=== PATIENT | male | born 1960 ===

== ENCOUNTER 2020-10-13 13:51 | Emergency (ER) | payer OTHER, SELFPAY ==
[2020-10-13 14:02] VITALS: BP 152/83; PULSE 94; RESP 18; O2SAT 97; BMI 44.3
--- NOTE | 2020-10-13 14:13 | XR_ITS ---
EXAMINATION: Right hand and right shoulder. CLINICAL INFORMATION: Injury. COMPARISON: None TECHNIQUE: 4 views right hand. 3 views right shoulder. FINDINGS: RIGHT HAND: There is mild loss of PIP and DIP joint space with periarticular spurring. No bony erosive changes. No acute fracture or dislocation seen. The soft tissues are normal. RIGHT SHOULDER: There is mild loss of right AC joint. The glenohumeral joint space is normal. There are subchondral cystic changes along the greater tuberosity. Mild glenohumeral spurring is seen. No visible acute fracture, dislocation or subluxation seen. The soft tissues are normal. XR/XR hand wrist RT IMPRESSION: Mild degenerative changes right shoulder joint. No visible acute fracture, dislocation or subluxation seen. Right hand: There is no visible acute fracture or dislocation. There are degenerative changes PIP and DIP joints.
--- NOTE | 2020-10-13 14:13 | XR_ITS ---
EXAMINATION: Right hand and right shoulder. CLINICAL INFORMATION: Injury. COMPARISON: None TECHNIQUE: 4 views right hand. 3 views right shoulder. FINDINGS: RIGHT HAND: There is mild loss of PIP and DIP joint space with periarticular spurring. No bony erosive changes. No acute fracture or dislocation seen. The soft tissues are normal. RIGHT SHOULDER: There is mild loss of right AC joint. The glenohumeral joint space is normal. There are subchondral cystic changes along the greater tuberosity. Mild glenohumeral spurring is seen. No visible acute fracture, dislocation or subluxation seen. The soft tissues are normal. XR/XR shoulder RT min 2V IMPRESSION: Mild degenerative changes right shoulder joint. No visible acute fracture, dislocation or subluxation seen. Right hand: There is no visible acute fracture or dislocation. There are degenerative changes PIP and DIP joints.
--- NOTE | 2020-10-13 14:16 | ED_ITS ---
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 scraping right knee and injuring right wrist right hand and right shoulder, no head injury no neck pain no back pain no loss of consciousness Related Data Allergies Allergy/AdvReac Type Severity Reaction Status Date / Time No Known Allergies Allergy Verified 08/21/20 09:44 Review of Systems Review of Systems: Positive for right wrist and hand pain as well as right shoulder pain, and a scrape of the right knee Negative there is no head injury no headache no loss of consciousness no dizziness no weakness no numbness no tingling, no neck pain no back pain no chest pain no pain with a deep breath no shortness of breath no laceration no trouble ambulating [facility] Past Medical History Source: nursing notes reviewed Surgical History (Updated 08/21/20 @ 09:45 by RAKEL Niño) No pertinent past surgical history Family History Family History (Updated 08/21/20 @ 09:46 by RAKEL Niño) Father Colon cancer Prostate cancer Mother Diabetes CVD (cardiovascular disease) Social History Social History Advance Directives: No Advance Directives Information Provided: Yes Physical Exam Vital Signs: Vital Signs: Last Vital Signs Pulse 94 10/13/20 14:02 Resp 18 10/13/20 14:02 BP 152/83 H 10/13/20 14:02 Pulse Ox 97 10/13/20 14:02 Body Mass Index 44.3 Patient is A&O x3 comfortable relaxed and cooperative, no acute distress Head is normocephalic atraumatic Neck is supple and nontender The chest no respiratory distress no chest wall tenderness, no tenderness to the clavicle Extremities the right knee has a superficial abrasion below the patella the knee has full range of motion without swelling or deformity and he is walking with a normal gait no limp The right shoulder has some discomfort with range of motion but does have a full range of motion and very mild deltoid tenderness Right elbow was normal with full range of motion Right wrist had good range of motion and very mild dorsal tenderness Right hand had mild dorsal tenderness and mild ecchymosis and swelling on the radial aspect of dorsal right hand but there is full range of motion in all joints, tendon function was intact and normal flexion and extension, neurovascular intact Neuro gait is normal balance is normal interaction is appropriate and understanding is normal, motor is 5 over 5 times for Course Course Course Narrative: X-ray of right hand and wrist did not show any acute injury or bony injury, there was some arthritis X-ray right shoulder same no acute injury some arthritic changes and patient was discharged home Discharge Plan Discharge Clinical Impression: Sprain and strain of right hand Abrasion of right knee Qualifiers: Encounter type: initial encounter Qualified Code(s): S80.211A - Abrasion, right knee, initial encounter Patient Disposition: Home, Self-Care Additional Instructions: No sign of any dangerous injury at this point, return any time any worse condition or concerns If not fully better follow with were connection before your return to work in 3 days X-rays did not show any acute injury or broken bone but they did show some arthritis in hand and in shoulder Her blood pressure was mildly elevated in the ER, follow with primary doctor for evaluation for possible hypertension, also get a blood pressure cuff at home and keep a record of the readings to see if they are high Referrals: [facility] [Provider Group] - 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
== END 2020-10-13 15:10 | disposition home or self-care (01) ==
PROVIDERS: Emergency Provider Emergency Medicine; PCP Physician Assistant
DX: S63.91XA Sprain of unspecified part of right wrist and hand, initial encounter (principal); S66.911A Strain of unspecified muscle, fascia and tendon at wrist and hand level, right hand, initial encounter; S80.211A Abrasion, right knee, initial encounter; W00.1XXA Fall from stairs and steps due to ice and snow, initial encounter; Y93.89 Activity, other specified; Y92.9 Unspecified place or not applicable; Y99.0 Civilian activity done for income or pay
CPT/HCPCS: 73030; 73110; 73130; 99281; 99283

== ENCOUNTER → 2020-10-16 14:07 | Outpatient (BNVA) | payer OTHER, SELFPAY | PROVIDERS: PCP Physician Assistant; Visit Provider Internal Medicine | DX: S43.401A Unspecified sprain of right shoulder joint, initial encounter (principal); S63.91XA Sprain of unspecified part of right wrist and hand, initial encounter; S80.01XA Contusion of right knee, initial encounter; W00.0XXA Fall on same level due to ice and snow, initial encounter | CPT/HCPCS: 99203 ==

== ENCOUNTER → 2020-10-20 15:07 | Outpatient (BNVA) | payer OTHER, SELFPAY | PROVIDERS: PCP Physician Assistant; Visit Provider Internal Medicine | DX: S46.911A Strain of unspecified muscle, fascia and tendon at shoulder and upper arm level, right arm, initial encounter (principal); S83.91XA Sprain of unspecified site of right knee, initial encounter; S63.601A Unspecified sprain of right thumb, initial encounter; W19.XXXA Unspecified fall, initial encounter | CPT/HCPCS: 99213 ==

== ENCOUNTER → 2020-10-30 09:15 | Outpatient (BNVA) | payer OTHER, SELFPAY | PROVIDERS: PCP Physician Assistant; Visit Provider Internal Medicine | DX: S46.911A Strain of unspecified muscle, fascia and tendon at shoulder and upper arm level, right arm, initial encounter (principal); S63.601A Unspecified sprain of right thumb, initial encounter; S80.01XA Contusion of right knee, initial encounter; W19.XXXA Unspecified fall, initial encounter | CPT/HCPCS: 99213 ==

== ENCOUNTER → 2020-11-06 08:03 | Outpatient (BNVA) | payer OTHER, SELFPAY | PROVIDERS: PCP Physician Assistant; Visit Provider Internal Medicine | DX: S43.401A Unspecified sprain of right shoulder joint, initial encounter (principal); S63.601A Unspecified sprain of right thumb, initial encounter; W19.XXXA Unspecified fall, initial encounter; R25.1 Tremor, unspecified | CPT/HCPCS: 99213 ==

== ENCOUNTER → 2020-11-10 09:39 | Outpatient (BNVA) | payer OTHER, SELFPAY | PROVIDERS: PCP Physician Assistant; Visit Provider Orthopaedic Surgery | DX: M18.11 Unilateral primary osteoarthritis of first carpometacarpal joint, right hand (principal); S60.221A Contusion of right hand, initial encounter | CPT/HCPCS: 99202 ==

== ENCOUNTER → 2020-11-14 08:10 | Outpatient (BNVA) | payer OTHER, SELFPAY | PROVIDERS: PCP Physician Assistant; Visit Provider Internal Medicine | DX: S69.91XD Unspecified injury of right wrist, hand and finger(s), subsequent encounter (principal); S49.91XD Unspecified injury of right shoulder and upper arm, subsequent encounter; W18.30XD Fall on same level, unspecified, subsequent encounter | CPT/HCPCS: 99213 ==

== ENCOUNTER 2020-11-19 09:00 | Outpatient (RCR) | payer OTHER, SELFPAY ==
--- NOTE | 2020-10-21 12:10 | MHC.PT.EP ---
[facility] [place] Office [place] Office [place] Office [address] Cuco Chang [address] [phone] F: [phone] F: [phone] F: [phone] F: [phone] Physical Therapy Plan of Care Date of Evaluation: 10/21/20 Date of Surgery: Diagnosis: FALL SPRAIN Rt THUMB AND Rt ROTATOR CUFF IMPINGEMENT Assessment: 60 YO MALE REF TO PT S/P SUSTAINING A FALL AT WORK 10/13/20, ONTO Rt SIDE WHILE ASCENDING STAIRS. HE IS REF TO OT FOR Rt HAND INJURY AND HAS EVAL SCHED FOR 10/22/20. Pt HAS DECR POSTURAL AWARENESS, LIMITED ROM Rt SH, DECR POST RC STRENGTH, AND (+) TENDERNESS W PALP TO Rt PARASCP AND ANT GH REGION. Pt HAS (+) Rt NEER IMPINGEMENT SIGN- CURRENTLY NO INSTABILITY OBSERVED- HE IS LIMITED W ADLs REQ > SH HEIGHT OR W EXTERNAL WT. Pt WOULD BENEFIT FROM PT TO ADDRESS PAIN, SOFT TISSUE IRRIT , AND DEV A HEP FOR STRENGTH , W RESPECT TO Rt HAND SXS. Frequency and Duration: The patient will be seen 2x WK x 3 WKS Short Term Goals: Pt REPORTS DECR Rt SH PAIN TO 2-3/10 IN 1.5 WKS Pt DEMON IMPROVED AROM Rt SH AND INDEP SELF CORRECT POSTURE IN 2 WKS Usp Goals: Pt RESUME REG ADLs W/O LIMITS FROM RT SH SXS IN 3 WKS Pt W IMPROVED SPADI SCORE BY 10 POINTS IN 3 WKS ( AT EVAL 65/130) Treatment Plan: Modalities to reduce pain, spasms and effusion. Manual therapy to restore motion and function. Therapeutic exercise to improve strength and flexibility. Neuromuscular re-education for posture and balance. Therapeutic activities to return to functional activities of daily living. Electronically signed by: Vesna Love, PT Please sign and return to therapist. Thank you for your referral.
--- NOTE | 2020-10-30 12:07 | MHC.PT.PR ---
[facility] [place] Office [place] Office [place] Office [address] Cuco Chang [address] [phone] F: [phone] F: [phone] F: [phone] F: [phone] Physical Therapy Progress Note Diagnosis: FALL SPRAIN Rt THUMB AND Rt ROTATOR CUFF IMPINGEMENT Date of Surgery: NA Date of Evaluation: 10/21/20 Treatments to Date: 4 Cancellations to Date: 0 No Shows to Date: 0 Subjective: Reports thumb is worse than his shoulder. When he uses his shoulder more, it gets progressively more sore. He saw Dr. Alberto this morning and potentially will be referred to surgeon for thumb. Pain Score and Location: 4 Rt ANT GH/ PARASCAP MM Objective Measures: R shoulder ROM: Flexion 160 ABD 140 ER 90 Apley ER C6, Apley IR SI joint Assessment: Reports feeling 60-70% better in regards to his shoulder pain. He still is light duty and reports pain/difficulty with reaching overhead to end-range, lifting, and reaching behind his back. He is making gradual gains in AROM and is compliant with HEP. Strength is the same at this time due to it only being 2 weeks since starting PT and strength changes would not be anticipated at this time. He would benefit from continued PT to progress ROM, decrease pain, and optimize functional mobility with an additional 2x/week for 3 additional weeks. PT Plan: Continue with PT Frequency and Duration: The patient will be seen 2x/week for an additional 3 weeks Treatment Plan: Therapeutic Exercise Dynamic Therapeutic Activities Neuromuscular Re-ed Manual Therapies Taping Home Exercise Program Patient Education Iontophoresis Hot or Cold Pack Reviewed/ Agreed with Student Documentation: N/A Therapist: Thank you once again for your referral.
--- NOTE | 2020-11-29 10:45 | MHC.PT.DC ---
[facility] [place] Office [place] Office [place] Office [address] Cuco Chang [address] [phone] F: [phone] F: [phone] F: [phone] F: [phone] Physical Therapy Discharge Report Diagnosis: FALL SPRAIN Rt THUMB AND Rt ROTATOR CUFF IMPINGEMENT Date of Surgery: NA Date of Evaluation: 10/21/20 Date of Discharge: 11/29/20 Treatments to Date: 10 Cancellations to Date: 0 No Shows to Date: 0 Discharge Status: Achieved Goals Improved Function Independent with HEP Discharge Summary: Pt MET PT GOALS- HE WAS LAST TREATED ON 11/19/20 AND PLANNED TO RTW ON 11/22/20 11/19/20. Pt INDEP W HEP AND WAS PLANNING TO CONTINUE AT THE GYM. HIS SHOULDER PAIN IS RELATIVELY RESOLVED- MINIMAL SOFT TISSUE TIGHTNESS WITH SHOULDER INTERNAL ROTATION. Electronically signed by: Vesna Love,PT Please sign and return to therapist. Thank you for your referral.
== END 2020-11-29 10:46 | disposition other institution (70) ==
LOC: HO.PT 09:00
PROVIDERS: PCP Physician Assistant; Visit Provider Internal Medicine
DX: S43.401A Unspecified sprain of right shoulder joint, initial encounter (principal)
CPT/HCPCS: 97110; 97140; 97162; 97530

== ENCOUNTER 2020-11-21 10:30 | Outpatient (RCR) | payer OTHER, SELFPAY | END 2020-12-04 15:38 | disposition other institution (70) | LOC: HO.OT 10:30 | PROVIDERS: PCP Physician Assistant; Visit Provider Internal Medicine | DX: S63.601D Unspecified sprain of right thumb, subsequent encounter (principal); M75.41 Impingement syndrome of right shoulder | CPT/HCPCS: 29125; 97014; 97033; 97035; 97110; 97165; 97760 ==

== ENCOUNTER → 2021-10-02 13:25 | Outpatient (BNVA) | payer OTHER, SELFPAY | PROVIDERS: PCP Physician Assistant; Referring Provider Physician Assistant; Visit Provider Surgery ==

== ENCOUNTER 2021-12-03 10:19 | Outpatient (REF) | payer OTHER, SELFPAY ==
[2021-12-03 11:11] LABS: Hematocrit 47.3 % (42.0-52.0); Hemoglobin 15.6 g/dl (14.0-18.0); Mean Corpuscular Hemoglobin 29.8 pg (27.0-33.0); Mean Corpuscular Volume 90.3 fL (80.0-98.0); Mean Platelet Volume 8.9 fL (9.4-12.4); Platelet Count 222 X10*3/uL (160-400); Red Blood Count 5.24 X10*6/uL (4.60-5.80); Red Cell Distribution Width 12.5 % (11.0-16.0)
[2021-12-03 12:25] LABS: Alanine Aminotransferase 30 U/L (0-40); Albumin Level 4.1 g/dL (3.5-5.0); Alkaline Phosphatase 72 U/L (39-117); Anion Gap 15 (12-20); Aspartate Amino Transferase 25 U/L (5-37); Bilirubin Total 0.8 mg/dL (0.0-1.0); Blood Urea Nitrogen 15 mg/dL (9-16); Calcium 9.3 mg/dL (8.4-10.2); Carbon Dioxide 25 mmol/L (22-29); Chloride 102 mmol/L (96-108); Cholesterol 219 mg/dL; Estimated Glomerular Filt Rate > 60; Glucose Fasting 174 mg/dL (60-99); HDL Cholesterol 40 mg/dL; LDL Cholesterol Calculated 152 mg/dl; Potassium 4.5 mmol/L (3.3-5.1); Sodium 137 mmol/L (135-145); Total Protein 7.3 g/dL (6.5-8.0); Triglycerides 136 mg/dL
[2021-12-03 12:33] LABS: TSH reflex Free T4 1.56 uIU/mL (0.32-4.0)
[2021-12-03 15:36] LABS: Prostate Specific Antigen Scr 0.65 ng/mL (<0.05-4.0)
== END 2021-12-03 10:20 | disposition home or self-care (01) ==
LOC: HO.LAB 10:19
PROVIDERS: PCP Physician Assistant; Visit Provider Physician Assistant
DX: Z13.1 Encounter for screening for diabetes mellitus (principal); Z13.220 Encounter for screening for lipoid disorders; Z13.29 Encounter for screening for other suspected endocrine disorder; Z12.5 Encounter for screening for malignant neoplasm of prostate; E66.01 Morbid (severe) obesity due to excess calories
CPT/HCPCS: 36415; 80053; 80061; 84153; 84443; 85027

== ENCOUNTER 2022-03-08 11:55 | Outpatient (REF) | payer OTHER, SELFPAY ==
[2022-03-08 13:05] LABS: Hematocrit 46.5 % (42.0-52.0); Hemoglobin 15.2 g/dl (14.0-18.0); Mean Corpuscular HGB Conc 32.7 g/dl (31.0-36.0); Mean Corpuscular Volume 91.9 fL (80.0-98.0); Mean Platelet Volume 8.9 fL (9.4-12.4); Platelet Count 215 X10*3/uL (160-400); Red Blood Count 5.06 X10*6/uL (4.60-5.80); Red Cell Distribution Width 12.9 % (11.0-16.0); White Blood Count 7.7 X10*3/uL (4.8-10.8)
[2022-03-08 14:53] LABS: TSH reflex Free T4 1.35 uIU/mL (0.32-4.0)
[2022-03-08 15:51] LABS: Alanine Aminotransferase 23 U/L (0-40); Albumin Level 4.2 g/dL (3.5-5.0); Alkaline Phosphatase 65 U/L (39-117); Anion Gap 15 (12-20); Aspartate Amino Transferase 24 U/L (5-37); Bilirubin Total 0.7 mg/dL (0.0-1.0); Blood Urea Nitrogen 17 mg/dL (9-16); Calcium 9.3 mg/dL (8.4-10.2); Carbon Dioxide 27 mmol/L (22-29); Chloride 102 mmol/L (96-108); Cholesterol 209 mg/dL; Estimated Glomerular Filt Rate > 60; Glucose Fasting 142 mg/dL (60-99); HDL Cholesterol 49 mg/dL; LDL Cholesterol Calculated 135 mg/dl; Potassium 5.2 mmol/L (3.3-5.1); Sodium 139 mmol/L (135-145); Total Protein 7.3 g/dL (6.5-8.0); Triglycerides 128 mg/dL
== END 2022-03-08 11:56 | disposition home or self-care (01) ==
LOC: HO.LAB 11:55
PROVIDERS: PCP Physician Assistant; Visit Provider Physician Assistant
DX: E11.65 Type 2 diabetes mellitus with hyperglycemia (principal); I10 Essential (primary) hypertension
CPT/HCPCS: 36415; 80053; 80061; 84443; 85027

== ENCOUNTER 2022-05-19 09:12 | Day surgery (SDC) | payer OTHER, SELFPAY ==
[2022-05-13 11:51] VITALS: BMI 53.0
--- NOTE | 2022-05-18 13:33 | P.CONAN_ITS ---
HPI - Anesthesia Eval Consult details Narrative: 62yo M for Colonoscopy PMFSH Active Problems Active Problems: All Active Problems (Updated 05/13/22 @ 11:50 by Jackie Hirsch RN) Arthritis of carpometacarpal (CMC) joint of right thumb (Acute) Contusion of right hand (Acute) Thrombosed hemorrhoids (Acute) Screening for diabetes mellitus (DM) (Acute) Screening for hypercholesterolemia (Acute) Screening for hypothyroidism (Acute) Annual physical exam (Acute) DMII (diabetes mellitus, type 2) (Acute) Colon cancer screening (Acute) Left shoulder pain (Acute) HTN (hypertension) (Acute) Morbid obesity (Acute) Perianal abscess (Acute) Past Medical History Medical History (Updated 05/13/22 @ 11:50 by Jackie Hirsch RN) Diabetes Elevated cholesterol HTN (hypertension) Morbid obesity Perianal abscess Family History Family History Father Colon cancer Prostate cancer Mother Diabetes CVD (cardiovascular disease) Heart attack, Onset Age: 56 Surgical History Surgical History (Updated 05/13/22 @ 11:47 by Jackie Hirsch RN) H/O colonoscopy History of esophagogastroduodenoscopy (EGD) Hx of excision of mass Hx of umbilical hernia repair Social History Social History Housing: House Alcohol intake: current Alcohol intake frequency: holidays/special occasions only Alcohol type: beer Patient Tobacco Use Status: Never used Tobacco e-Cigarette/Vaping Use: Never Used Use of substances other than those prescribed or required for medical reasons: No Are you DNR?: No Advance Directives: No Advance Directives Information Provided: Yes Current occupational status: employed 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 Allergies Allergy/AdvReac Type Severity Reaction Status Date / Time dulaglutide [From Trulicity] AdvReac Intermediate Abdominal Verified 03/08/22 11:30 Pain metformin AdvReac Intermediate Abdominal Verified 03/08/22 11:30 Pain Exam Exam Date and Time: May 18, 2022 1333 Height,Weight and Vital Signs: Height 5 ft 8.5 in Weight 160.572 kg Pertinent Lab Results Pertinent Lab Results: Laboratory Tests 03/08/22 03/08/22 12:08 12:08 WBC 7.7 Hgb 15.2 Hct 46.5 Plt Count 215 Sodium 139 Potassium 5.2 H Chloride 102 Carbon Dioxide 27 BUN 17 H Creatinine 1.08 Assessment and Plan Assessment Anesthesia Assessment: Chart Reviewed
[2022-05-19 09:36] VITALS: BP 142/78; PULSE 101; RESP 18; TEMP 35.8; O2SAT 96
[2022-05-19] MEDS: Lactated Ringers 1,000 ML 100 ML IVCONT (09:48)
[2022-05-19 09:50] LABS: Glucose, Whole Blood 203 mg/dL (60-115)
[2022-05-19 11:20] VITALS: BP 143/98; PULSE 108; RESP 16; TEMP 37.4; O2SAT 95
--- NOTE | 2022-05-19 11:23 | P.BOP_ITS ---
Brief Operative Note Date of Service: 05/19/22 Pre-op diagnosis: Screening Post-op diagnosis: other (Polyps) Procedure: Colonoscopy to the cecum with hot snare polypectomy x 2 Surgeon: Donald Stroud Anesthesia: MAC Was an Computer Help Desk Representative used for this Procedure?: No Estimated blood loss (mL): 2.0 Pathology: other (A. Distal ascending colon polyps) Condition: stable Disposition: PACU
[2022-05-19 11:35] VITALS: BP 137/76; PULSE 96; RESP 18; TEMP 36.9; O2SAT 96
--- NOTE | 2022-05-21 10:54 | OP_ITS ---
05/21/2022 SURGEON: Donald Stroud MD INDICATIONS: The patient presents for evaluation of colorectal cancer screening. Full consent has been obtained from him for this, including risks of bleeding and perforation. PREOPERATIVE DIAGNOSIS: Colorectal cancer screening. POSTOPERATIVE DIAGNOSIS: PROCEDURE PERFORMED: Colonoscopy to the cecum with hot snare polypectomy x 2 and placement of 2 resolution clips. ESTIMATED BLOOD LOSS: COMPLICATIONS: ANESTHESIA: Monitored anesthesia care. ASSISTANTS: SPECIMENS: POSTOPERATIVE DIAGNOSES: Colorectal cancer screening, colon polyps, diverticulosis, and internal hemorrhoids. DESCRIPTION OF PROCEDURE: The patient was placed in the left lateral decubitus position. The digital rectal exam revealed no abnormalities. The Z[employer]DIGS video pediatric colonoscope was entered into the rectum and advanced easily to the cecum. Once in the cecum, I did identify normal-appearing cecal pouch with appendiceal orifice and a normal-appearing ileocecal valve. The entire cecum was well visualized and appeared normal. The scope was slowly withdrawn assessing all mucosal surfaces carefully. Preparation was excellent. In the distal ascending colon were 2 polyps, each approximately 8 to 10 mm in size and grossly adenomatous. These were each removed by hot snare polypectomy and recovered by suction. One site had some persistent oozing, and therefore 2 resolution clips were applied with good deployment and good hemostasis. I did not visualize any other polyps, colitis, nor angiodysplasia. There was a mild amount of sigmoid diverticulosis. In the rectum, the scope was retroflexed visualizing internal hemorrhoids, but no other pathology. The rectal mucosa appeared normal. The scope was straightened and withdrawn from the patient. He tolerated the procedure well and was returned to the recovery area in stable condition. IMPRESSION: 1. Colon polyps. 2. Diverticulosis. 3. Internal hemorrhoids. PLAN: The results of the pathology will be checked. I would recommend a repeat colonoscopy in 5 years for further screening. He was advised not to use any aspirin and NSAIDs for 1 week. He will otherwise see me again on a p.r.n. basis. MD ARMANDO Carrera/GILBERT / [id number] MTDD
== END 2022-05-19 12:20 | disposition home or self-care (01) ==
PROVIDERS: PCP Physician Assistant; Visit Provider Internal Medicine
PROC: 0DJD8ZZ Inspection of Lower Intestinal Tract, Via Natural or Artificial Opening Endoscopic (ICD-10-PCS; CPT 45378; principal; 2022-05-19 10:30)
DX: Z12.11 Encounter for screening for malignant neoplasm of colon (principal); Z80.0 Family history of malignant neoplasm of digestive organs; D12.2 Benign neoplasm of ascending colon; K57.30 Diverticulosis of large intestine without perforation or abscess without bleeding; K64.8 Other hemorrhoids; I10 Essential (primary) hypertension; E78.00 Pure hypercholesterolemia, unspecified; E11.9 Type 2 diabetes mellitus without complications; Z79.82 Long term (current) use of aspirin; Z79.899 Other long term (current) drug therapy; Z88.8 Allergy status to other drugs, medicaments and biological substances
CPT/HCPCS: 45385; 82947; 88305; J2250

== ENCOUNTER 2022-10-06 14:57 | Outpatient (REF) | payer OTHER, SELFPAY ==
--- NOTE | ~2022-10-06 | XR_ITS ---
EXAMINATION: XR CHEST CLINICAL INFORMATION: Cough COMPARISON: 09/26/2018 TECHNIQUE: 2 views of the chest were obtained. FINDINGS: The lungs are well expanded. There is no focal consolidation, edema, or effusion. No pneumothorax. The cardiomediastinal silhouette is within normal limits. No acute osseous abnormality. XR/XR chest 2V IMPRESSION: Clear lungs.
== END 2022-10-06 14:58 | disposition home or self-care (01) ==
LOC: HO.HMGCX 14:57
PROVIDERS: PCP Physician Assistant; Visit Provider Internal Medicine
DX: R05.9 Cough, unspecified (principal)
CPT/HCPCS: 71046

== ENCOUNTER 2022-12-08 14:04 | Outpatient (REF) | payer OTHER, SELFPAY ==
[2022-12-08 15:21] LABS: Hematocrit 48.5 % (42.0-52.0); Hemoglobin 16.3 g/dl (14.0-18.0); Mean Corpuscular HGB Conc 33.6 g/dl (31.0-36.0); Mean Corpuscular Hemoglobin 30.8 pg (27.0-33.0); Mean Corpuscular Volume 91.7 fL (80.0-98.0); Mean Platelet Volume 9.3 fL (9.4-12.4); Platelet Count 241 X10*3/uL (160-400); Red Blood Count 5.29 X10*6/uL (4.60-5.80); White Blood Count 9.5 X10*3/uL (4.8-10.8)
[2022-12-08 16:00] LABS: Alanine Aminotransferase 36 U/L (0-40); Alkaline Phosphatase 76 U/L (39-117); Anion Gap 16 (12-20); Aspartate Amino Transferase 34 U/L (5-37); Bilirubin Total 0.8 mg/dL (0.0-1.0); Blood Urea Nitrogen 16 mg/dL (9-16); Calcium 9.4 mg/dL (8.4-10.2); Carbon Dioxide 25 mmol/L (22-29); Chloride 100 mmol/L (96-108); Cholesterol 229 mg/dL; Estimated Glomerular Filt Rate > 60; Glucose Fasting 216 mg/dL (60-99); HDL Cholesterol 41 mg/dL; LDL Cholesterol Calculated 155 mg/dl; Potassium 5.4 mmol/L (3.3-5.1); Sodium 136 mmol/L (135-145); Triglycerides 166 mg/dL
[2022-12-08 16:01] LABS: Creatinine Urine 228.51 mg/dL; Microalbum/Creatinine Ratio Ur 6.5 ug/mg cr
[2022-12-08 16:16] LABS: Prostate Specific Antigen Scr 0.74 ng/mL (<0.05-4.0); TSH reflex Free T4 1.73 uIU/mL (0.32-4.0)
== END 2022-12-08 14:05 | disposition home or self-care (01) ==
LOC: HO.LAB 14:04
PROVIDERS: PCP Physician Assistant; Visit Provider Physician Assistant
DX: Z12.5 Encounter for screening for malignant neoplasm of prostate (principal); E11.65 Type 2 diabetes mellitus with hyperglycemia; E66.01 Morbid (severe) obesity due to excess calories; I10 Essential (primary) hypertension
CPT/HCPCS: 36415; 80053; 80061; 82043; 84153; 84443; 85027

== ENCOUNTER 2023-03-10 10:37 | Outpatient (REF) | payer OTHER, SELFPAY ==
[2023-03-10 11:15] LABS: Hematocrit 46.7 % (42.0-52.0); Hemoglobin 15.3 g/dl (14.0-18.0); Mean Corpuscular HGB Conc 32.8 g/dl (31.0-36.0); Mean Corpuscular Hemoglobin 30.4 pg (27.0-33.0); Mean Corpuscular Volume 92.7 fL (80.0-98.0); Mean Platelet Volume 8.7 fL (9.4-12.4); Platelet Count 227 X10*3/uL (160-400); Red Blood Count 5.04 X10*6/uL (4.60-5.80); White Blood Count 8.1 X10*3/uL (4.8-10.8)
[2023-03-10 11:39] LABS: Alanine Aminotransferase 21 U/L (0-40); Albumin Level 3.9 g/dL (3.5-5.0); Alkaline Phosphatase 62 U/L (39-117); Anion Gap 14 (12-20); Aspartate Amino Transferase 21 U/L (5-37); Bilirubin Total 0.8 mg/dL (0.0-1.0); Blood Urea Nitrogen 14 mg/dL (9-16); Calcium 9.9 mg/dL (8.4-10.2); Carbon Dioxide 27 mmol/L (22-29); Chloride 102 mmol/L (96-108); Cholesterol 220 mg/dL; Estimated Glomerular Filt Rate > 60; Glucose Fasting 167 mg/dL (60-99); HDL Cholesterol 42 mg/dL; LDL Cholesterol Calculated 152 mg/dl; Potassium 4.8 mmol/L (3.3-5.1); Sodium 138 mmol/L (135-145); Total Protein 7.3 g/dL (6.5-8.0); Triglycerides 132 mg/dL
== END 2023-03-10 10:38 | disposition home or self-care (01) ==
LOC: HO.LAB 10:37
PROVIDERS: PCP Physician Assistant; Visit Provider Physician Assistant
DX: E11.65 Type 2 diabetes mellitus with hyperglycemia (principal)
CPT/HCPCS: 36415; 80053; 80061; 85027

== ENCOUNTER 2023-06-07 10:39 | Outpatient (AMB) | payer OTHER, SELFPAY ==
[2023-06-07 11:04] VITALS: BP 122/84; PULSE 95; RESP 16; O2SAT 98
--- NOTE | 2023-06-07 11:04 | A.OFFPC_ITS ---
Vital Signs 06/07/23 11:04 Weight 353 lb BP 122/84 Blood Pressure Location Lt brachial Position Sitting Respiration 16 Pulse 95 Pulse Source Pulse Oximeter Pulse Oximetry (%) 98 Oxygen Delivery Method Room Air Intake Visit Reasons: f/u DMII Intake Note: Pt is here for F/U DMII. 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 Accompanied by: Self / Same As Patient Allergies [facility] Adverse Reaction (Intermediate, Verified 06/07/23 11:25) Abdominal Pain metformin Adverse Reaction (Intermediate, Verified 06/07/23 11:25) Abdominal Pain Medication List - Last Reconciled 06/07/23 by Jose E Dougherty PA-C blood sugar diagnostic (FreeStyle Lite Strips) As directed blood-glucose meter (FreeStyle Lite Meter kit) As directed lancets (FreeStyle Lancets) As directed pioglitazone (Actos) 30 mg PO DAILY 90 days semaglutide (Ozempic) 0.25 mg (0.368 mL) subcut QWEEK 4 weeks simvastatin 10 mg PO DAILY 90 days Tobacco use date assessed: 03/10/23 Dental Screening Dental Screen Date: 06/07/23 Did you have a dental visit in the last 12 months?: Yes Did you have a dental problem in the last 6 months where you did not have access to dental care?: No Was dental information given to patient?: Patient has dentist HPI f/u DMII HPI Details Patient is a 63-year-old male here today for follow-up visit? Patient has a past medical history significant obesity type 2 diabetes, hypertension. .. Type 2 diabetes:??At last visit we discussed patient's uncontrolled type 2 diabetes. We started Ozempic an A1c as much improved. .. Hyperlipidemia: Continues on simvastatin 10 mg. Dom goal LDL to be below 100 .. HTN:? Patient currently managing his blood pressure without medication.? Otherwise denies any headaches, vision issues, chest discomfort or shortness of breath. ? Will supply him with a blood pressure cuff to do home blood pressure monitoring. Laboratory Tests 03/19/19 04/17/20 04/17/20 09:00 10:45 10:45 RBC Hgb Creatinine Fasting Glucose 153 H Hemoglobin A1c 8.6 Hgb A1c (Clinic) Cholesterol 131 D LDL Cholesterol, C alc PSA Screen TSH 3rd Generation 1.21 TSH 12/03/21 12/03/21 12/08/22 09:15 10:31 13:35 RBC 5.24 Hgb 15.6 Creatinine 1.03 Fasting Glucose 174 H Hemoglobin A1c Hgb A1c (Clinic) 8.1 H 9.8 H Cholesterol 219 LDL Cholesterol, C alc 152 PSA Screen 0.65 TSH 3rd Generation TSH 1.56 12/08/22 03/10/23 03/10/23 14:18 10:09 10:46 RBC 5.04 Hgb Creatinine Fasting Glucose 216 H Hemoglobin A1c Hgb A1c (Clinic) 8.1 H Cholesterol LDL Cholesterol, C alc PSA Screen TSH 3rd Generation TSH 06/07/23 10:50 RBC Hgb Creatinine Fasting Glucose Hemoglobin A1c Hgb A1c (Clinic) 6.4 H Cholesterol LDL Cholesterol, C alc PSA Screen TSH 3rd Generation TSH PFSH Medical History Elevated cholesterol Diabetes HTN (hypertension) Morbid obesity Thrombosed hemorrhoids Perianal abscess Arthritis of carpometacarpal (CMC) joint of right thumb Surgical History Hx of excision of mass History of esophagogastroduodenoscopy (EGD) H/O colonoscopy Hx of umbilical hernia repair Family History Father Colon cancer Prostate cancer Mother Diabetes CVD (cardiovascular disease) Heart attack, Onset Age: 56 Social History Housing: House Alcohol intake: current Alcohol intake frequency: holidays/special occasions only Alcohol type: beer Patient Tobacco Use Status: Never used Tobacco e-Cigarette/Vaping Use: Never Used Current occupational status: employed and retired 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 Donald Hanna, Chanell Medina, Gurjit Grove and colleagues, with an educational brian from [employer]. Review of Systems Const Denies headache(s) Eyes Denies loss of vision ENT Denies vertigo, Denies dizziness, Denies headache(s) and Denies sore throat Card Denies chest pain, Denies leg edema and Denies lightheadedness Resp Denies cough, Denies hemoptysis and Denies wheezing GI Denies abdominal pain, Denies melena, Denies constipation, Denies diarrhea and Denies vomiting Denies dysuria, Denies urinary frequency and Denies urinary urgency Musc Denies arthralgias, Denies joint swelling, Denies numbness and Denies tingling Neuro Denies Abnormal speech present, Denies behavioral changes, Denies vertigo, Denies dizziness, Denies headache(s), Denies loss of vision, Denies memory loss, Denies numbness and Denies tingling Psych Denies anxiety, Denies behavioral changes, Denies depression, Denies memory loss and Denies panic attacks Schuyler/Lymph Denies easy bleeding and Denies easy bruising Aller/Immun Denies wheezing Physical exam (Primary Care) Vital Signs: Last Vital Signs Pulse 95 06/07/23 11:04 Resp 16 06/07/23 11:04 BP 122/84 06/07/23 11:04 Pulse Ox 98 06/07/23 11:04 Oxygen Delivery Method Room Air 06/07/23 11:04 Tobacco/Smoking Status: Tobacco use Status Tobacco use date assessed 03/10/23 06/07/23 11:07 Patient Tobacco Use Status Never used Tobacco 06/07/23 11:07 e-Cigarette/Vaping Use Never Used 06/07/23 11:07 Thrive Assessment: Date of Thrive Assessment Date Thrive assessed 12/08/22 06/07/23 11:07 Const General: healthy appearing, no acute distress, alert and awake Nutritional Appearance: well nourished Orientation/consciousness: oriented to person, oriented to place and oriented to time HENMT Ears: TM's normal bilaterally General nose exam: Normal nasal mucous membranes and turbinates present Eyes Conjunctivae: conjunctivae normal Sclerae: sclerae normal Pupils: Equal, round and reactive pupils present Neck Neck: Yes no lymphadenopathy and Yes no JVD Thyroid: Thyroid normal Carotids: no bruits Resp Effort & Inspection: normal respiratory effort and not tachypneic Auscultation: no crackles, no rales, no rhonchi and no wheezes Cardio Rate: regular rate Rhythm: regular rhythm Heart sounds: no murmurs and normal S1 and S2 GI Palpation (GI): Soft to palpation, nontender, no hepatomegaly and no splenomegaly Auscultation: normal bowel sounds Skin General skin exam: no rashes or lesions noted and dry skin Neuro General: oriented to person, oriented to place and oriented to time Cranial nerves: Yes Equal, round and reactive pupils present Speech: No Abnormal speech present Gait exam (Neuro): Normal gait present Motor exam (neuro): no tremor noted Extrem Right upper extremity: full ROM Left upper extremity: full ROM Right lower extremity: full ROM; no edema Left lower extremity: full ROM; no edema Psych Mental Status: mental status grossly normal Speech and movement: Normal speech and movement present Affect: normal affect Attitude: cooperative Thought process: Normal thought process present Results AMB Hemoglobin A1c AMB Hemoglobin A1c 6.4 % Last Edit by SRINIVAS Amor on 06/07/23 11:18 Results Reviewed Results Reviewed: Laboratory Last Values Hgb A1c (Clinic) 6.4 % (4.0-6.0) H 06/07/23 10:50 Assessment and Plan Assessment & Plan (1) DMII (diabetes mellitus, type 2): Code(s): E11.9 - Type 2 diabetes mellitus without complications Qualifiers: Diabetes mellitus complication status: with hyperglycemia Diabetes mellitus intermediate card tender insulin use: without intermediate card tender use Qualified Code(s): E11.65 - Type 2 diabetes mellitus with hyperglycemia Plan: Patient's type 2 diabetes now well controlled. Has had excellent response with Ozempic 0.25 mg weekly. Advised to increase dose to 0.5 mg for better results and additional benefit of weight loss and patient is considering. Goal A1c is to remain below 7.0 (2) HTN (hypertension): Code(s): I10 - Essential (primary) hypertension Qualifiers: Hypertension type: primary hypertension Qualified Code(s): I10 - Essential (primary) hypertension Plan: Patient's blood pressure acceptable today in office. Advised to monitor blood pressure at home with goal blood pressure to be below 140/90 (3) Morbid obesity: Code(s): E66.01 - Morbid (severe) obesity due to excess calories Plan: Has noted minimal amount of weight loss since last office visit.. Patient does understand his BMI is over 50 and unfortunately gained weight since last office visit. Advised to be more physically active an adapt to better eating habits to reduce his weight Orders: Orders AMB Hemoglobin A1c Today E11.9 - Type 2 diabetes mellitus without complications Comprehensive [place]. Panel Fast Today E11.65 - Type 2 diabetes mellitus with hyperglycemia Lipid Panel Today E78.5 - Hyperlipidemia, unspecified Complete Blood Count no Diff Today E11.65 - Type 2 diabetes mellitus with hyperglycemia Medications: Refilled semaglutide (Ozempic) for 4 weeks 0.25 mg (0.368 mL) subcut QWEEK 4 weeks 3 mL 3RF E11.65 - Type 2 diabetes mellitus with hyperglycemia Coding Level of Care Code Est Pt Level 4 (81979) Diagnoses Type 2 diabetes mellitus with hyperglycemia, without long-term current use of insulin E11.65 Diabetes mellitus complication status: with hyperglycemia Diabetes mellitus correction insulin use: without correction use Primary hypertension I10 Hypertension type: primary hypertension Morbid obesity E66.01
== END 2023-06-07 11:36 | disposition home or self-care (01) ==
PROVIDERS: PCP Physician Assistant; Visit Provider Physician Assistant
DX: E11.65 Type 2 diabetes mellitus with hyperglycemia (principal); I10 Essential (primary) hypertension; E66.01 Morbid (severe) obesity due to excess calories; E11.9 Type 2 diabetes mellitus without complications
CPT/HCPCS: 83036; 99214

== ENCOUNTER 2023-06-07 11:48 | Outpatient (REF) | payer OTHER, SELFPAY ==
[2023-06-07 12:59] LABS: Hematocrit 49.3 % (42.0-52.0); Hemoglobin 15.9 g/dl (14.0-18.0); Mean Corpuscular HGB Conc 32.3 g/dl (31.0-36.0); Mean Corpuscular Hemoglobin 30.1 pg (27.0-33.0); Mean Corpuscular Volume 93.2 fL (80.0-98.0); Platelet Count 234 X10*3/uL (160-400); Red Blood Count 5.29 X10*6/uL (4.60-5.80); Red Cell Distribution Width 13.2 % (11.0-16.0); White Blood Count 9.6 X10*3/uL (4.8-10.8)
[2023-06-07 13:56] LABS: Alanine Aminotransferase 15 U/L (0-40); Albumin Level 4.1 g/dL (3.5-5.0); Alkaline Phosphatase 57 U/L (39-117); Anion Gap 14 (12-20); Aspartate Amino Transferase 18 U/L (5-37); Bilirubin Total 0.6 mg/dL (0.0-1.0); Blood Urea Nitrogen 15 mg/dL (9-16); Carbon Dioxide 27 mmol/L (22-29); Chloride 103 mmol/L (96-108); Cholesterol 180 mg/dL (<200); Estimated Glomerular Filt Rate > 60; Glucose Fasting 139 mg/dL (60-99); Glucose Random 139 mg/dL (60-115); HDL Cholesterol 45 mg/dL (>40); LDL Cholesterol Calculated 111 mg/dL (<100); Sodium 139 mmol/L (135-145); Total Protein 7.7 g/dL (6.5-8.0); Triglycerides 121 mg/dL (<150)
== END 2023-06-07 11:49 | disposition home or self-care (01) ==
LOC: HO.LAB 11:48
PROVIDERS: PCP Physician Assistant; Visit Provider Physician Assistant
DX: E11.65 Type 2 diabetes mellitus with hyperglycemia (principal); E87.5 Hyperkalemia; E78.5 Hyperlipidemia, unspecified
CPT/HCPCS: 36415; 80048; 80053; 80061; 85027

== ENCOUNTER 2023-08-31 07:39 | Outpatient (AMB) | payer OTHER, SELFPAY ==
[2023-08-31 07:44] VITALS: BP 130/88; PULSE 93; O2SAT 98; BMI 51.5
--- NOTE | 2023-08-31 07:44 | MHC.PC.OV ---
Vital Signs 08/31/23 07:44 Height 5 ft 8.5 in Weight 344 lb BMI 51.5 BP 130/88 Blood Pressure Location Lt brachial Position Sitting Pulse 93 Pulse Source Pulse Oximeter Pulse Oximetry (%) 98 Oxygen Delivery Method Room Air Intake Visit Reasons: f/u DMII Allergies dulaglutide [From [facility]] Adverse Reaction (Intermediate, Verified 08/31/23 08:03) Abdominal Pain metformin Adverse Reaction (Intermediate, Verified 08/31/23 08:03) Abdominal Pain Medication List - Last Reconciled 08/31/23 by Jose E Dougherty PA-C blood sugar diagnostic (FreeStyle Lite Strips) As directed blood-glucose meter (FreeStyle Lite Meter kit) As directed lancets (FreeStyle Lancets) As directed pioglitazone (Actos) 30 mg PO DAILY 90 days pioglitazone (Actos) 30 mg PO DAILY 90 days semaglutide (Ozempic) 0.25 mg (0.368 mL) subcut QWEEK 4 weeks simvastatin 10 mg PO DAILY 90 days Tobacco use date assessed: 03/10/23 Dental Screening Dental Screen Date: 08/31/23 Did you have a dental visit in the last 12 months?: Yes Did you have a dental problem in the last 6 months where you did not have access to dental care?: No Was dental information given to patient?: Patient has dentist HPI f/u DMII HPI Details Patient is a 63-year-old male here today for follow-up visit? Patient has a past medical history significant obesity type 2 diabetes, hypertension. .. Type 2 diabetes:??At last visit we discussed patient's uncontrolled type 2 diabetes. He continues on Ozempic 0.5 mg. Unfortunately his A1c has elevated to 8.2. Of note he has lost a few lb since last office visit. .. Hyperlipidemia: Continues on simvastatin 10 mg. Dom goal LDL to be below 100 .. HTN:? Patient currently managing his blood pressure without medication.? Otherwise denies any headaches, vision issues, chest discomfort or shortness of breath. ? Will supply him with a blood pressure cuff to do home blood pressure monitoring. Laboratory Tests 03/19/19 04/17/20 04/17/20 09:00 10:45 10:45 RBC Hgb Creatinine Fasting Glucose 153 H Hemoglobin A1c 8.6 Hgb A1c (Clinic) Cholesterol 131 D LDL Cholesterol, C alc PSA Screen TSH 3rd Generation 1.21 TSH 12/03/21 12/03/21 12/08/22 09:15 10:31 13:35 RBC 5.24 Hgb 15.6 Creatinine 1.03 Fasting Glucose 174 H Hemoglobin A1c Hgb A1c (Clinic) 8.1 H 9.8 H Cholesterol 219 LDL Cholesterol, C alc 152 PSA Screen 0.65 TSH 3rd Generation TSH 1.56 12/08/22 03/10/23 03/10/23 14:18 10:09 10:46 RBC 5.04 Hgb Creatinine Fasting Glucose 216 H Hemoglobin A1c Hgb A1c (Clinic) 8.1 H Cholesterol LDL Cholesterol, C alc PSA Screen TSH 3rd Generation TSH 06/07/23 10:50 RBC Hgb Creatinine Fasting Glucose Hemoglobin A1c Hgb A1c (Clinic) 6.4 H Cholesterol LDL Cholesterol, C alc PSA Screen TSH 3rd Generation TSH PFSH Medical History Elevated cholesterol Diabetes HTN (hypertension) Morbid obesity Thrombosed hemorrhoids Perianal abscess Arthritis of carpometacarpal (CMC) joint of right thumb Surgical History Hx of excision of mass History of esophagogastroduodenoscopy (EGD) H/O colonoscopy Hx of umbilical hernia repair Family History Father Colon cancer Prostate cancer Mother Diabetes CVD (cardiovascular disease) Heart attack, Onset Age: 56 Social History Housing: House Alcohol intake: current Alcohol intake frequency: holidays/special occasions only Alcohol type: beer Patient Tobacco Use Status: Never used Tobacco e-Cigarette/Vaping Use: Never Used Current occupational status: employed and retired 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 1. Little interest or pleasure in doing things: not at all 2. Feeling down, depressed, or hopeless: not at all 3. Trouble falling or staying asleep, or sleeping too much: not at all 4. Feeling tired or having little energy: not at all 5. Poor appetite or overeating: not at all 6. Feeling bad about yourself - or that you are a failure or have let yourself or your family down: not at all 7. Trouble concentrating on things, such as reading the newspaper or watching television: not at all 8. Moving or speaking so slowly that other people could have noticed. Or the opposite - being so fidgety or restless that you have been moving around a lot more than usual: not at all 9. Thoughts that you would be better off or of hurting yourself in some way: not at all Total score: 0 Depression Screening Interpretation: Negative Depression Screening Done: Yes 50625 - PHQ-9 Billing: Yes Source: Developed by Drs. Donald Hanna, Chanell Medina, Gurjit Grove and colleagues, with an educational brian from [employer]. Thrive Questionnaire Date Thrive assessed: 12/08/22 AUDIT C Alcohol Use Questionnaire (AUDIT-C) 1. How often do you have a drink containing alcohol?: Monthly or less 2. How many drinks containing alcohol do you have on a typical day when you are drinking?: 1 or 2 3. How often do you have six or more drinks on one occasion?: Never Total Score: 1 FARIDA-7 AMB Questionnaire FARIDA-7 Date FARIDA - 7 assessed: 12/08/22 Source: Developed by Drs. Donadl Hanna, Chanell Medina, Gurjit Grove and colleagues, with an educational brian from [employer]. Review of Systems Const Denies headache(s) Eyes Denies loss of vision ENT Denies vertigo, Denies dizziness, Denies headache(s) and Denies sore throat Card Denies chest pain, Denies leg edema and Denies lightheadedness Resp Denies cough, Denies hemoptysis and Denies wheezing GI Denies abdominal pain, Denies melena, Denies constipation, Denies diarrhea and Denies vomiting Denies dysuria, Denies urinary frequency and Denies urinary urgency Musc Denies arthralgias, Denies joint swelling, Denies numbness and Denies tingling Neuro Denies Abnormal speech present, Denies behavioral changes, Denies vertigo, Denies dizziness, Denies headache(s), Denies loss of vision, Denies memory loss, Denies numbness and Denies tingling Psych Denies anxiety, Denies behavioral changes, Denies depression, Denies memory loss and Denies panic attacks Schuyler/Lymph Denies easy bleeding and Denies easy bruising Aller/Immun Denies wheezing Physical exam (Primary Care) Vital Signs: Last Vital Signs Pulse 93 08/31/23 07:44 BP 130/88 08/31/23 07:44 Pulse Ox 98 08/31/23 07:44 Oxygen Delivery Method Room Air 08/31/23 07:44 BMI result Body Mass Index 51.5 BMI Assessment/Plan discussion: High Tobacco/Smoking Status: Tobacco use Status Tobacco use date assessed 03/10/23 08/31/23 07:46 Patient Tobacco Use Status Never used Tobacco 08/31/23 07:46 e-Cigarette/Vaping Use Never Used 08/31/23 07:46 PHQ-9: PHQ-9 Score PHQ-9: Total score 0 08/31/23 08:04 Depression Screening Interpretation: Negative Thrive Assessment: Date of Thrive Assessment Date Thrive assessed 12/08/22 08/31/23 07:46 Const Other: Morbidly obese General: healthy appearing, no acute distress, alert and awake Nutritional Appearance: well nourished Orientation/consciousness: oriented to person, oriented to place and oriented to time HENMT Ears: TM's normal bilaterally General nose exam: Normal nasal mucous membranes and turbinates present Eyes Conjunctivae: conjunctivae normal Sclerae: sclerae normal Pupils: Equal, round and reactive pupils present Neck Neck: Yes no lymphadenopathy and Yes no JVD Thyroid: Thyroid normal Carotids: no bruits Resp Effort & Inspection: normal respiratory effort and not tachypneic Auscultation: no crackles, no rales, no rhonchi and no wheezes Cardio Rate: regular rate Rhythm: regular rhythm Heart sounds: no murmurs and normal S1 and S2 GI Palpation (GI): Soft to palpation, nontender, no hepatomegaly and no splenomegaly Auscultation: normal bowel sounds Skin General skin exam: no rashes or lesions noted and dry skin Neuro General: oriented to person, oriented to place and oriented to time Cranial nerves: Yes Equal, round and reactive pupils present Speech: No Abnormal speech present Gait exam (Neuro): Normal gait present Motor exam (neuro): no tremor noted Extrem Right upper extremity: full ROM Left upper extremity: full ROM Right lower extremity: full ROM; no edema Left lower extremity: full ROM; no edema Psych Mental Status: mental status grossly normal Speech and movement: Normal speech and movement present Affect: normal affect Attitude: cooperative Thought process: Normal thought process present Office Procedures Flu Questionnaire Does the patient have a severe egg allergy?: No Does the patient have severe life threatening allergies?: No Does the patient have a fever or illness today?: No Has the patient ever had Guillain-[place] Syndrome?: No Has the patient ever had any past reaction to a flu shot?: No Results AMB Hemoglobin A1c AMB Hemoglobin A1c 8.5 % Last Edit by Lisa Monet CMA on 08/31/23 08:01 Immunizations flu vacc [id number] 6mos up(PF) 60 mcg(15 mcgx4)/0.5 mL IM syringe Performing Provider: Jose E Dougherty PA-C Performing Location: [facility] Administered by: Lisa Monet CMA on 08/31/23 08:23 Dose Route Admin Location Dispensed Lot Number Expiration Date N[employer] Wel[employer] F[employer] Apprentice 0.5 mL IM Left Deltoid 0.5 mL [id number] 03/11/24 [id number] VIS Given Date VIS Provided VIS Publication Date 08/31/23 Single Vaccine 21 Eligibility Eligibility Date Funding Source Not [facility] Eligible 08/31/23 Private Results Reviewed Results Reviewed: Laboratory Last Values Hgb A1c (Clinic) 8.5 % (4.0-6.0) H 08/31/23 07:46 Assessment and Plan Assessment & Plan (1) DMII (diabetes mellitus, type 2): Code(s): E11.9 - Type 2 diabetes mellitus without complications Qualifiers: Diabetes mellitus long term acute care registered nurse insulin use: without long term acute care registered nurse use Diabetes mellitus complication status: with hyperglycemia Qualified Code(s): E11.65 - Type 2 diabetes mellitus with hyperglycemia Plan: Patient's type 2 diabetes now well controlled. Had previous he had an excellent response to his Ozempic. Unfortunately today's A1c elevated at 8.5 Has been somewhat reluctant to increase his dose to 0.5 mg. He does understand that this is the standard dose. He is not willing to increase his dose to 1 mg of Ozempic weekly. (2) HTN (hypertension): Code(s): I10 - Essential (primary) hypertension Qualifiers: Hypertension type: primary hypertension Qualified Code(s): I10 - Essential (primary) hypertension Plan: Patient's blood pressure acceptable today in office. Advised to monitor blood pressure at home with goal blood pressure to be below 140/90 (3) Morbid obesity: Code(s): E66.01 - Morbid (severe) obesity due to excess calories Plan: Has noted weight loss since last office visit. Advised to be more physically active an adapt to better eating habits to reduce his weight Orders: Orders Influenza [id number] Immunization Today Z23 - Encounter for immunization AMB Hemoglobin A1c Today Z13.9 - Encounter for screening, unspecified Comprehensive [place]. Panel Fast Today E11.65 - Type 2 diabetes mellitus with hyperglycemia Lipid Panel Today E78.5 - Hyperlipidemia, unspecified Medications: New semaglutide (Ozempic) 1 mg (0.75 mL) subcut QWEEK 4 weeks 3 mL 3RF E11.65 - Type 2 diabetes mellitus with hyperglycemia Refilled pioglitazone (Actos) 30 mg PO DAILY 90 days 90 tabs 1RF E11.65 - Type 2 diabetes mellitus with hyperglycemia simvastatin 10 mg PO DAILY 90 days 90 tabs 1RF E78.5 - Hyperlipidemia, unspecified Discontinued semaglutide (Ozempic) for 4 weeks Discontinued Reason: Doctor's Order 0.25 mg (0.368 mL) subcut QWEEK 4 weeks 3 mL 3RF E11.65 - Type 2 diabetes mellitus with hyperglycemia Coding Level of Care Code Est Pt Level 4 (23679) Diagnoses Type 2 diabetes mellitus with hyperglycemia, without long-term current use of insulin E11.65 Diabetes mellitus long term acute care registered nurse insulin use: without long term acute care registered nurse use Diabetes mellitus complication status: with hyperglycemia Primary hypertension I10 Hypertension type: primary hypertension Morbid obesity E66.01
== END 2023-08-31 08:27 | disposition home or self-care (01) ==
PROVIDERS: PCP Physician Assistant; Visit Provider Physician Assistant
DX: Z23 Encounter for immunization (principal); E11.65 Type 2 diabetes mellitus with hyperglycemia; I10 Essential (primary) hypertension; E66.01 Morbid (severe) obesity due to excess calories; Z68.43 Body mass index [BMI] 50.0-59.9, adult
CPT/HCPCS: 83036; 90471; 90686; 99214

== ENCOUNTER 2023-08-31 08:34 | Outpatient (REF) | payer OTHER, SELFPAY ==
[2023-08-31 09:45] LABS: Alanine Aminotransferase 23 U/L (0-40); Albumin Level 3.9 g/dL (3.5-5.0); Alkaline Phosphatase 74 U/L (39-117); Anion Gap 13 (12-20); Aspartate Amino Transferase 23 U/L (5-37); Bilirubin Total 0.6 mg/dL (0.0-1.0); Blood Urea Nitrogen 12 mg/dL (9-16); Calcium 9.6 mg/dL (8.4-10.2); Carbon Dioxide 27 mmol/L (22-29); Chloride 102 mmol/L (96-108); Cholesterol 209 mg/dL (<200); Estimated Glomerular Filt Rate > 60; Glucose Fasting 224 mg/dL (60-99); HDL Cholesterol 38 mg/dL (>40); LDL Cholesterol Calculated 142 mg/dL (<100); Potassium 4.5 mmol/L (3.3-5.1); Sodium 137 mmol/L (135-145); Total Protein 7.5 g/dL (6.5-8.0); Triglycerides 145 mg/dL (<150)
== END 2023-08-31 08:35 | disposition home or self-care (01) ==
LOC: HO.LAB 08:34
PROVIDERS: PCP Physician Assistant; Visit Provider Physician Assistant
DX: E78.5 Hyperlipidemia, unspecified (principal); E11.65 Type 2 diabetes mellitus with hyperglycemia
CPT/HCPCS: 36415; 80053; 80061

== ENCOUNTER 2023-11-28 08:07 | Outpatient (AMB) | payer OTHER, SELFPAY ==
[2023-11-28 08:41] VITALS: BP 126/82; BMI 50.8
--- NOTE | 2023-11-28 08:41 | MHC.PC.OV ---
Vital Signs 11/28/23 08:41 Height 5 ft 8.5 in Weight 339 lb BMI 50.8 BP 126/82 Blood Pressure Location Lt brachial Position Sitting Intake Visit Reasons: f/u DMII Intake Note: Patient here for a follow up DM College Tutor Required: No Accompanied by: Self / Same As Patient Allergies dulaglutide [From [facility]] Adverse Reaction (Intermediate, Verified 11/28/23 08:52) Abdominal Pain metformin Adverse Reaction (Intermediate, Verified 11/28/23 08:52) Abdominal Pain Medication List - Last Reconciled 11/28/23 by Jose E Dougherty PA-C blood sugar diagnostic (FreeStyle Lite Strips) As directed blood-glucose meter (FreeStyle Lite Meter kit) As directed lancets (FreeStyle Lancets) As directed pioglitazone (Actos) 30 mg PO DAILY 90 days semaglutide (Ozempic) 1 mg (0.75 mL) subcut QWEEK 4 weeks simvastatin 40 mg PO DAILY 90 days Tobacco use date assessed: 11/28/23 Dental Screening Dental Screen Date: 11/28/23 Did you have a dental visit in the last 12 months?: Yes Did you have a dental problem in the last 6 months where you did not have access to dental care?: No Was dental information given to patient?: Patient has dentist HPI f/u DMII HPI Details Patient is a 63-year-old male here today for follow-up visit. ? Patient has a past medical history significant obesity type 2 diabetes, hypertension. .. Type 2 diabetes:??At last visit we discussed patient's uncontrolled type 2 diabetes. Has been more physically active and A1c now at 7.6.. He continues on Ozempic 0.5 mg. We discussed going up to Ozempic 1 mg though has been having trouble obtaining this from pharmacy. Of note he has lost a few lb since last office visit. .. Obesity: Has been continued on GLP1 and has noted some weight loss. .. Hyperlipidemia: Continues on simvastatin 10 mg. Dom goal LDL to be below 100 .. HTN:? Patient currently managing his blood pressure without medication.? Otherwise denies any headaches, vision issues, chest discomfort or shortness of breath. ? Laboratory Tests 03/19/19 04/17/20 04/17/20 09:00 10:45 10:45 RBC Hgb Creatinine Fasting Glucose 153 H Hemoglobin A1c 8.6 Hgb A1c (Clinic) Cholesterol 131 D LDL Cholesterol, C alc PSA Screen TSH 3rd Generation 1.21 TSH 12/03/21 12/03/21 12/08/22 09:15 10:31 13:35 RBC 5.24 Hgb 15.6 Creatinine 1.03 Fasting Glucose 174 H Hemoglobin A1c Hgb A1c (Clinic) 8.1 H 9.8 H Cholesterol 219 LDL Cholesterol, C alc 152 PSA Screen 0.65 TSH 3rd Generation TSH 1.56 12/08/22 03/10/23 03/10/23 14:18 10:09 10:46 RBC 5.04 Hgb Creatinine Fasting Glucose 216 H Hemoglobin A1c Hgb A1c (Clinic) 8.1 H Cholesterol LDL Cholesterol, C alc PSA Screen TSH 3rd Generation TSH 06/07/23 10:50 RBC Hgb Creatinine Fasting Glucose Hemoglobin A1c Hgb A1c (Clinic) 6.4 H Cholesterol LDL Cholesterol, C alc PSA Screen TSH 3rd Generation TSH PFSH Medical History Elevated cholesterol Diabetes HTN (hypertension) Morbid obesity Thrombosed hemorrhoids Perianal abscess Arthritis of carpometacarpal (CMC) joint of right thumb Surgical History Hx of excision of mass History of esophagogastroduodenoscopy (EGD) H/O colonoscopy Hx of umbilical hernia repair Family History Father Colon cancer Prostate cancer Mother Diabetes CVD (cardiovascular disease) Heart attack, Onset Age: 56 Social History Housing: House Alcohol intake: current Alcohol intake frequency: holidays/special occasions only Alcohol type: beer Patient Tobacco Use Status: Never used Tobacco e-Cigarette/Vaping Use: Never Used Second Hand Smoke Exposure: No service: No Current occupational status: employed and retired 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 1. Little interest or pleasure in doing things: not at all 2. Feeling down, depressed, or hopeless: not at all 3. Trouble falling or staying asleep, or sleeping too much: not at all 4. Feeling tired or having little energy: not at all 5. Poor appetite or overeating: not at all 6. Feeling bad about yourself - or that you are a failure or have let yourself or your family down: not at all 7. Trouble concentrating on things, such as reading the newspaper or watching television: not at all 8. Moving or speaking so slowly that other people could have noticed. Or the opposite - being so fidgety or restless that you have been moving around a lot more than usual: not at all 9. Thoughts that you would be better off or of hurting yourself in some way: not at all Total score: 0 Depression Screening Interpretation: Negative Depression Screening Done: Yes 76871 - PHQ-9 Billing: Yes Source: Developed by Drs. Donald Hanna, Chanell Medina, Gurjit Grove and colleagues, with an educational brian from [employer]. Thrive Questionnaire Date Thrive assessed: 11/28/23 I am a: Patient What is your living situation today?: I have a steady place to live Within the past 12 months, did the food you bought not last and you didn't have the money to get more?: Never true Within the past 12 months, did you worry whether your food would run out before you got money to buy more?: Never true Do you have trouble paying for medicines?: No Do you have trouble getting transportation to medical appointments?: No Do you have trouble paying your heating and electricity bill?: No Do you have trouble taking care of your child, family member or friend?: No Do you have trouble with day-to-day activities such as bathing, preparing meals, shopping, managing finances, etc.?: No Are you currently unemployed and looking for a job?: No Are you interested in more education?: No Please select the resources that you would like help with: None Currently or been in a relationship where the following occur: no concerns reported THRIVE Score: 0 AUDIT C Alcohol Use Questionnaire (AUDIT-C) 1. How often do you have a drink containing alcohol?: Monthly or less 2. How many drinks containing alcohol do you have on a typical day when you are drinking?: 1 or 2 3. How often do you have six or more drinks on one occasion?: Never Total Score: 1 FARIDA-7 AMB Questionnaire FARIDA-7 Date FARIDA - 7 assessed: 11/28/23 Feeling nervous, anxious, or on edge: 0 = Not at all Not being able to stop or control worryin = Not at all Worrying too much about different things: 0 = Not at all Trouble relaxin = Not at all Being so restless that it is hard to sit still: 0 = Not at all Becoming easily annoyed or irritable: 0 = Not at all Feeling afraid as if something awful might happen: 0 = Not at all Total FARIDA-7 score (0-4 normal; 5-9 mild; 10-14 moderate; 15-21 severe): 0 Source: Developed by Drs. Donald Hanna, Chanell Medina, Gurjit Grove and colleagues, with an educational brian from [employer]. FARIDA-7 Assessment Billing FARIDA-7 Assessment Tool: FARIDA-7 Assessment 66890 Review of Systems Const Denies headache(s) Eyes Denies loss of vision ENT Denies vertigo, Denies dizziness, Denies headache(s) and Denies sore throat Card Denies chest pain, Denies leg edema and Denies lightheadedness Resp Denies cough, Denies hemoptysis and Denies wheezing GI Denies abdominal pain, Denies melena, Denies constipation, Denies diarrhea and Denies vomiting Denies dysuria, Denies urinary frequency and Denies urinary urgency Musc Denies arthralgias, Denies joint swelling, Denies numbness and Denies tingling Neuro Denies Abnormal speech present, Denies behavioral changes, Denies vertigo, Denies dizziness, Denies headache(s), Denies loss of vision, Denies memory loss, Denies numbness and Denies tingling Psych Denies anxiety, Denies behavioral changes, Denies depression, Denies memory loss and Denies panic attacks Schuyler/Lymph Denies easy bleeding and Denies easy bruising Aller/Immun Denies wheezing Physical exam (Primary Care) Vital Signs: Last Vital Signs BP 126/82 11/28/23 08:41 BMI result Body Mass Index 50.8 Tobacco/Smoking Status: Tobacco use Status Tobacco use date assessed 03/10/23 11/28/23 08:42 Patient Tobacco Use Status Never used Tobacco 11/28/23 08:42 e-Cigarette/Vaping Use Never Used 11/28/23 08:42 Depression Screening Interpretation: Negative Thrive Assessment: Date of Thrive Assessment Date Thrive assessed 12/08/22 11/28/23 08:42 Currently or been in a relationship where the following occur: no concerns reported Const General: healthy appearing, no acute distress, alert and awake Nutritional Appearance: well nourished Orientation/consciousness: oriented to person, oriented to place and oriented to time HENMT Ears: TM's normal bilaterally General nose exam: Normal nasal mucous membranes and turbinates present Eyes Conjunctivae: conjunctivae normal Sclerae: sclerae normal Pupils: Equal, round and reactive pupils present Neck Neck: Yes no lymphadenopathy and Yes no JVD Thyroid: Thyroid normal Carotids: no bruits Resp Effort & Inspection: normal respiratory effort and not tachypneic Auscultation: no crackles, no rales, no rhonchi and no wheezes Cardio Rate: regular rate Rhythm: regular rhythm Heart sounds: no murmurs and normal S1 and S2 GI Palpation (GI): Soft to palpation, nontender, no hepatomegaly and no splenomegaly Auscultation: normal bowel sounds Skin General skin exam: no rashes or lesions noted and dry skin Neuro General: oriented to person, oriented to place and oriented to time Cranial nerves: Yes Equal, round and reactive pupils present Speech: No Abnormal speech present Gait exam (Neuro): Normal gait present Motor exam (neuro): no tremor noted Extrem Right upper extremity: full ROM Left upper extremity: full ROM Right lower extremity: full ROM; no edema Left lower extremity: full ROM; no edema Psych Mental Status: mental status grossly normal Speech and movement: Normal speech and movement present Affect: normal affect Attitude: cooperative Thought process: Normal thought process present Results AMB Hemoglobin A1c AMB Hemoglobin A1c 7.6 % Last Edit by RAKEL Whitten on 11/28/23 08:51 Assessment and Plan Assessment & Plan (1) DMII (diabetes mellitus, type 2): Code(s): E11.9 - Type 2 diabetes mellitus without complications Qualifiers: Diabetes mellitus complication status: with hyperglycemia Diabetes mellitus exterminator termite insulin use: without exterminator termite use Qualified Code(s): E11.65 - Type 2 diabetes mellitus with hyperglycemia Plan: Patient's type 2 diabetes suboptimally controlled. Had previous he had an excellent response to his Ozempic. We have tried Ozempic 1 mg though has not been able to get from pharmacy, continues on Ozempic 0.5 mg weekly Today's A1c is 7.6 from 8.5 He will continue working on being more physically active and adapting to a low carbohydrate diet. (2) HTN (hypertension): Code(s): I10 - Essential (primary) hypertension Qualifiers: Hypertension type: primary hypertension Qualified Code(s): I10 - Essential (primary) hypertension Plan: Patient's blood pressure acceptable today in office. Is well controlled by diet and exercise.. Advised to monitor blood pressure at home with goal blood pressure to be below 140/90 (3) Morbid obesity: Code(s): E66.01 - Morbid (severe) obesity due to excess calories Plan: Has noted weight loss since last office visit. Advised to be more physically active an adapt to better eating habits to reduce his weight Orders: Orders Lipid Panel Today E78.5 - Hyperlipidemia, unspecified Comprehensive [place]. Panel Fast Today E11.65 - Type 2 diabetes mellitus with hyperglycemia Complete Blood Count no Diff Today E11.65 - Type 2 diabetes mellitus with hyperglycemia Microalbumin, Random (w Creat) Today E11.65 - Type 2 diabetes mellitus with hyperglycemia AMB Hemoglobin A1c Today E11.9 - Type 2 diabetes mellitus without complications Prostate Specific Antigen Scr Today E78.5 - Hyperlipidemia, unspecified, Z12.5 - Encounter for screening for malignant neoplasm of prostate Coding Level of Care Code Est Pt Level 4 (72832) Diagnoses Type 2 diabetes mellitus with hyperglycemia, without long-term current use of insulin E11.65 Diabetes mellitus complication status: with hyperglycemia Diabetes mellitus exterminator termite insulin use: without fpc use Primary hypertension I10 Hypertension type: primary hypertension Morbid obesity E66.01 Additional Codes FARIDA-7 Assessment Billing - FARIDA-7 Assessment Tool: FARIDA-7 Assessment [id number] ([id number])
== END 2023-11-28 09:03 | disposition home or self-care (01) ==
PROVIDERS: PCP Physician Assistant; Visit Provider Physician Assistant
DX: E11.65 Type 2 diabetes mellitus with hyperglycemia (principal); E66.01 Morbid (severe) obesity due to excess calories; Z68.43 Body mass index [BMI] 50.0-59.9, adult; I10 Essential (primary) hypertension
CPT/HCPCS: 83036; 99214

== ENCOUNTER 2023-11-28 09:09 | Outpatient (REF) | payer OTHER, SELFPAY ==
[2023-11-28 10:32] LABS: Hematocrit 44.6 % (42.0-52.0); Hemoglobin 15.1 g/dl (14.0-18.0); Mean Corpuscular HGB Conc 33.9 g/dl (31.0-36.0); Mean Corpuscular Hemoglobin 30.4 pg (27.0-33.0); Mean Corpuscular Volume 89.9 fL (80.0-98.0); Platelet Count 222 X10*3/uL (160-400); Red Blood Count 4.96 X10*6/uL (4.60-5.80); White Blood Count 8.1 X10*3/uL (4.8-10.8)
[2023-11-28 11:27] LABS: Alanine Aminotransferase 20 U/L (0-40); Albumin Level 3.9 g/dL (3.5-5.0); Alkaline Phosphatase 69 U/L (39-117); Anion Gap 16 (12-20); Aspartate Amino Transferase 18 U/L (5-37); Bilirubin Total 0.6 mg/dL (0.0-1.0); Blood Urea Nitrogen 14 mg/dL (9-16); Calcium 9.1 mg/dL (8.4-10.2); Carbon Dioxide 22 mmol/L (22-29); Chloride 104 mmol/L (96-108); Cholesterol 157 mg/dL (<200); Estimated Glomerular Filt Rate > 60; Glucose Fasting 166 mg/dL (60-99); HDL Cholesterol 38 mg/dL (>40); LDL Cholesterol Calculated 94 mg/dL (<100); Potassium 3.8 mmol/L (3.3-5.1); Sodium 138 mmol/L (135-145); Total Protein 7.3 g/dL (6.5-8.0); Triglycerides 125 mg/dL (<150)
[2023-11-28 11:32] LABS: Creatinine Urine 214.67 mg/dL; Microalbum/Creatinine Ratio Ur 3.2 ug/mg cr (<30)
[2023-11-28 11:39] LABS: Prostate Specific Antigen Scr 0.66 ng/mL (<0.05-4.0)
== END 2023-11-28 09:10 | disposition home or self-care (01) ==
LOC: HO.LAB 09:09
PROVIDERS: PCP Physician Assistant; Visit Provider Physician Assistant
DX: Z12.5 Encounter for screening for malignant neoplasm of prostate (principal); E11.65 Type 2 diabetes mellitus with hyperglycemia; E78.5 Hyperlipidemia, unspecified
CPT/HCPCS: 36415; 80053; 80061; 82043; 82570; 84153; 85027

== ENCOUNTER 2024-02-28 08:18 | Outpatient (AMB) | payer OTHER, SELFPAY ==
--- NOTE | 2024-02-28 08:34 | A.OFFPC_ITS ---
Vital Signs 02/28/24 08:35 Height 5 ft 8.5 in Weight 338 lb BMI 50.6 BP 118/76 Blood Pressure Location Lt brachial Position Sitting Pulse 82 Pulse Source Pulse Oximeter Pulse Oximetry (%) 98 Oxygen Delivery Method Room Air Intake Visit Reasons: f/u DMII Psychology Assistant Required: No Net Trainer: Not Required per policy Accompanied by: Self / Same As Patient Allergies dulaglutide [From [facility]] Adverse Reaction (Intermediate, Verified 02/28/24 08:44) Abdominal Pain metformin Adverse Reaction (Intermediate, Verified 02/28/24 08:44) Abdominal Pain Tobacco use date assessed: 11/28/23 Dental Screening Dental Screen Date: 11/28/23 HPI f/u DMII HPI Details Patient is a 64-year-old male here today for an annual physical ? Patient has a past medical history significant obesity type 2 diabetes, hypertension. .. Type 2 diabetes:??At last visit we discussed patient's suboptimally controlled type 2 diabetes. Has been more physically active and A1c now at 7.4 He continues on Ozempic 0.5 mg. We discussed going up to Ozempic 1 mg though has been having trouble obtaining this from pharmacy. Of note he has lost a few lb since last office visit. .. Obesity: Has been continued on GLP1 and has noted some weight loss. .. Hyperlipidemia: Continues on simvastatin 10 mg. goal LDL to be below 100 .. HTN:? Patient currently managing his blood pressure without medication.? Otherwise denies any headaches, vision issues, chest discomfort or shortness of breath. Colonoscopy: ( does have family history of colon cancer) 2021- tubular adenoma polyps found, repeat 5 years Vaccines:? Up-to-date with pneumonia and tetanus vaccine, up-to-date with COVID Moderna vaccine, ?needs shingles vaccine [facility] Medical History Elevated cholesterol Diabetes HTN (hypertension) Morbid obesity Thrombosed hemorrhoids Perianal abscess Arthritis of carpometacarpal (CMC) joint of right thumb Surgical History Hx of excision of mass History of esophagogastroduodenoscopy (EGD) H/O colonoscopy Hx of umbilical hernia repair Family History Father Colon cancer Prostate cancer Mother Diabetes CVD (cardiovascular disease) Heart attack, Onset Age: 56 Social History (Updated 02/28/24 @ 08:47 by Jose E Dougherty PA-C) Housing: House Alcohol intake: current Alcohol intake frequency: holidays/special occasions only Alcohol type: beer Patient Tobacco Use Status: Never used Tobacco e-Cigarette/Vaping Use: Never Used Second Hand Smoke Exposure: No service: No Current occupational status: employed and retired 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 Donald Hanna, Chanell Medina, Gurjit Grove and colleagues, with an educational brian from [email or web address]. Review of Systems Const Denies body aches, Denies chills, Denies excessive sweating, Denies fatigue, Denies fever(s) and Denies headache(s) Eyes Denies blurry vision ENT Denies dysphagia, Denies vertigo, Denies dizziness, Denies headache(s), Denies hearing loss and Denies tinnitus Card Denies chest pain, Denies chest pain with activity, Denies syncope, Denies irregular heart rhythm and Denies dyspnea Resp Denies chest congestion, Denies cough, Denies hemoptysis, Denies dyspnea and Denies wheezing GI Denies abdominal pain, Denies melena, Denies hematochezia, Denies coffee ground emesis, Denies dysphagia, Denies diarrhea, Denies nausea and Denies vomiting Denies difficulty urinating, Denies dysuria, Denies urinary frequency, Denies urinary hesitancy and Denies urinary urgency Musc Denies arthralgias, Denies limited range of motion, Denies muscle cramps and Denies muscle weakness Skin/Breast Denies rash and Denies skin ulcer Neuro Denies Abnormal speech present, Denies confusion, Denies vertigo, Denies dizziness, Denies syncope, Denies headache(s), Denies memory loss and Denies seizure-like activity Psych Denies anxiety, Denies confusion, Denies depression, Denies memory loss, Denies panic attacks and Denies paranoia Endo Denies excessive sweating, Denies fatigue, Denies flushing, Denies polydipsia and Denies polyuria Aller/Immun Denies wheezing Physical exam (Primary Care) Vital Signs: Last Vital Signs Pulse 82 02/28/24 08:35 BP 118/76 02/28/24 08:35 Pulse Ox 98 02/28/24 08:35 Oxygen Delivery Method Room Air 02/28/24 08:35 BMI result Body Mass Index 50.6 Tobacco/Smoking Status: Tobacco use Status Tobacco use date assessed 11/28/23 02/28/24 08:35 Patient Tobacco Use Status Never used Tobacco 02/28/24 08:47 e-Cigarette/Vaping Use Never Used 02/28/24 08:47 Thrive Assessment: Date of Thrive Assessment Date Thrive assessed 11/28/23 02/28/24 08:35 Const General: cooperative, comfortable, no acute distress, alert and awake; No confusion Orientation/consciousness: oriented to person, oriented to place, patient oriented x3 and No confusion HENMT Head: Yes normocephalic Ears: external ears normal and TM's normal bilaterally Face and sinus: No sinus tenderness Mouth: Normal oral and palatal mucosa present and tongue normal Teeth and gingiva: dentition normal and gingiva normal Throat: Yes posterior oropharynx normal, Yes tonsils normal and Yes uvula midline Eyes Conjunctivae: conjunctivae normal Sclerae: sclerae normal Pupils: Equal, round and reactive pupils present EOM: EOMs intact bilaterally Direct Ophthalmoscopy: No no photophobia Neck Neck: Yes no lymphadenopathy, No tender and Yes no JVD Thyroid: Thyroid normal Carotids: no bruits Chest Chest palpation & inspection: no tenderness Resp Effort & Inspection: normal respiratory effort, no audible wheezes, not labored and no stridor Auscultation: no crackles, no rales, no rhonchi and no wheezes Cardio Jugular venous distension: no JVD Rate: regular rate, not bradycardic and not tachycardic Rhythm: regular rhythm Bruits: no carotid bruits Peripheral pulses: Peripheral pulses 2+ throughout GI Inspection: Yes normal to inspection, No abdominal wall ecchymosis and No visible herniation Palpation (GI): Soft to palpation, nontender, no guarding, not rigid and No hepatosplenomegaly present Auscultation: normoactive bowel sounds General: Yes no CVA tenderness Back/Spine/Pelvis Back: no CVA tenderness and No back tenderness Cervical Spine: cervical ROM normal Thoracic/Lumbar Spine: thoracic and lumbar spine normal to inspection, straight leg raise negative bilaterally, No thoraco-lumbar ROM limited and No lumbar spinal tenderness Skin Lesions: no lesions Rashes: no rashes Wounds: no wounds Neuro General: oriented to person, oriented to place, patient oriented x3, CN's II-XI intact bilaterally and No confusion Cranial nerves: Yes Equal, round and reactive pupils present and Yes Normal accommodation reflex present Cognition (Neuro): normal cognition Speech: No Abnormal speech present Gait exam (Neuro): Normal gait present Motor exam (neuro): 5/5 motor strength present throughout Extrem Right upper extremity: full ROM; no cyanosis Left upper extremity: full ROM; no cyanosis Right lower extremity: no edema Left lower extremity: no edema Psych Appearance: grossly normal Mental Status: mental status grossly normal Affect: normal affect Attitude: cooperative Thought process: Normal thought process present Results AMB Hemoglobin A1c AMB Hemoglobin A1c 7.4 % Last Edit by RAKEL Spears on 02/28/24 08:47 Results Reviewed Results Reviewed: Laboratory Last Values Hgb A1c (Clinic) 7.4 % (4.0-6.0) H 02/28/24 08:36 Assessment and Plan Assessment & Plan (1) Annual physical exam: Code(s): Z00.00 - Encounter for general adult medical examination without abnormal fin dings (2) DMII (diabetes mellitus, type 2): Code(s): E11.9 - Type 2 diabetes mellitus without complications Qualifiers: Diabetes mellitus complication status: with hyperglycemia Diabetes mellitus rn long term care insulin use: without rn long term care use Qualified Code(s): E11.65 - Type 2 diabetes mellitus with hyperglycemia Plan: Patient's type 2 diabetes suboptimally controlled. Had previous he had an excellent response to his Ozempic. continues on Ozempic 0.5 mg weekly Today's A1c is 7.4 from 7.6. He is just started to be more physically active and plans on losing weight over the summer. He will continue working on being more physically active and adapting to a low carbohydrate diet. Goal A1c is to be below 7.0 (3) HTN (hypertension): Code(s): I10 - Essential (primary) hypertension Qualifiers: Hypertension type: primary hypertension Qualified Code(s): I10 - Essential (primary) hypertension Plan: Patient's blood pressure acceptable today in office. Is well controlled by diet and exercise.. Advised to monitor blood pressure at home with goal blood pressure to be below 140/90 (4) Morbid obesity: Code(s): E66.01 - Morbid (severe) obesity due to excess calories Plan: Does understand his BMI is over 50. Advised to be more physically active an adapt to better eating habits to reduce his weight (5) Essential tremor: Code(s): G25.0 - Essential tremor Plan: Has noted intentional tremor over the last year. Has difficulty with signing his name. Did offer him occupational therapy though he is considering. Did see a neurologist in the past and was offered medication though declined. Orders: Orders Comprehensive [place]. Panel Fast Today E78.5 - Hyperlipidemia, unspecified Varicella IgG Antibody Today Z78.9 - Other specified health status AMB Hemoglobin A1c Today E11.65 - Type 2 diabetes mellitus with hyperglycemia Patient Instructions: Goal: Blood pressure to remain below 140/90, LDL to be below 100 Barriers: Adherence to physical activity and healthy eating habits. Coding Level of Care Code Est Pt Prev Care 40-64y(33626) Diagnoses Annual physical exam Z00.00 Type 2 diabetes mellitus with hyperglycemia, without long-term current use of insulin E11.65 Diabetes mellitus complication status: with hyperglycemia Diabetes mellitus care home insulin use: without care home use Primary hypertension I10 Hypertension type: primary hypertension Morbid obesity E66.01 Essential tremor G25.0
[2024-02-28 08:35] VITALS: BP 118/76; PULSE 82; O2SAT 98; BMI 50.6
== END 2024-02-28 09:02 | disposition home or self-care (01) ==
PROVIDERS: PCP Physician Assistant; Visit Provider Physician Assistant
DX: Z00.00 Encounter for general adult medical examination without abnormal findings (principal); E11.65 Type 2 diabetes mellitus with hyperglycemia; I10 Essential (primary) hypertension; G25.0 Essential tremor
CPT/HCPCS: 83036; 99396

== ENCOUNTER 2024-02-28 09:09 | Outpatient (REF) | payer OTHER, SELFPAY ==
[2024-02-28 10:22] LABS: Alanine Aminotransferase 17 U/L (0-40); Alkaline Phosphatase 59 U/L (39-117); Anion Gap 14 (12-20); Aspartate Amino Transferase 18 U/L (5-37); Bilirubin Total 0.7 mg/dL (0.0-1.0); Blood Urea Nitrogen 14 mg/dL (9-16); Calcium 9.3 mg/dL (8.4-10.2); Carbon Dioxide 27 mmol/L (22-29); Chloride 105 mmol/L (96-108); Estimated Glomerular Filt Rate > 60; Glucose Fasting 148 mg/dL (60-99); Potassium 4.4 mmol/L (3.3-5.1); Sodium 142 mmol/L (135-145); Total Protein 7.4 g/dL (6.5-8.0)
== END 2024-02-28 09:10 | disposition home or self-care (01) ==
LOC: HO.LAB 09:09
PROVIDERS: PCP Physician Assistant; Visit Provider Physician Assistant
DX: Z78.9 Other specified health status (principal); E78.5 Hyperlipidemia, unspecified
CPT/HCPCS: 36415; 80053; 86787

== ENCOUNTER 2024-04-03 08:03 | Outpatient (AMB) | payer BC, SELFPAY ==
[2024-04-03 08:06] VITALS: BP 128/74; PULSE 86; TEMP 36.7; O2SAT 98; BMI 54.9
--- NOTE | 2024-04-03 08:06 | MHC.OFFWIV ---
Intake Vital Signs 04/03/24 08:06 Height 5 ft 5.8 in Weight 338 lb BMI 54.9 BP 128/74 Blood Pressure Location Lt brachial Position Sitting Pulse 86 Pulse Source Pulse Oximeter Temp 98.0 F Temp Source Temporal Artery Scan Pulse Oximetry (%) 98 Oxygen Delivery Method Room Air Intake Visit Reasons: EP lft foot swollen few days DM Intake Note: pt is here for left foot swelling, patient has dx of DM Patient Tobacco Use Status: Never used Tobacco All[facility]ies [facility] Adverse Reaction (Intermediate, Verified 04/03/24 08:17) Abdominal Pain metformin Adverse Reaction (Intermediate, Verified 04/03/24 08:17) Abdominal Pain Do you need a note to return to daycare/school/sports/work: No HPI HPI Comments History of Present Illness Details 4-year-old male with a past medical history of type 2 diabetes complaining of left foot swelling x1 week. He states approximately 1 week ago he got a sliver from his deck in his left foot, he picked out most of it throughout the week and got all of it yesterday but he noticed his foot started swelling within a day or 2 of the sliver going in. It is now painful and itchy and swollen. He denies any fevers. [facility]LY [facility] Medical History Elevated cholesterol Diabetes HTN (hypertension) Morbid obesity Thrombosed hemorrhoids Perianal abscess Arthritis of carpometacarpal (CMC) joint of right thumb Surgical History Hx of excision of mass History of esophagogastroduodenoscopy (EGD) H/O colonoscopy Hx of umbilical hernia repair Family History Father Colon cancer Prostate cancer Mother Diabetes CVD (cardiovascular disease) Heart attack, Onset Age: 56 Social History (Updated 02/28/24 @ 08:47 by Jose E Dougherty PA-C) Housing: House Alcohol intake: current Alcohol intake frequency: holidays/special occasions only Alcohol type: beer Patient Tobacco Use Status: Never used Tobacco e-Cigarette/Vaping Use: Never Used Second Hand Smoke Exposure: No service: No Current occupational status: employed and retired 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 Cognitive needs: No Hearing needs: No Vision needs: No Review of Systems Const All systems reviewed & are unremarkable except as noted in HPI and below Physical Exam Vital Signs: Last Vital Signs Temp 98.0 F 04/03/24 08:06 Pulse 86 04/03/24 08:06 BP 128/74 04/03/24 08:06 Pulse Ox 98 04/03/24 08:06 Oxygen Delivery Method Room Air 04/03/24 08:06 BMI result Body Mass Index 54.9 Const General: cooperative, healthy appearing, comfortable, no acute distress and well developed Orientation/consciousness: patient oriented x3 Limitations: no limitations HEENT Head: Yes normal to inspection Eyes General: appearance normal, both eyes and all related structures Neck Neck: Yes normal visual inspection and Yes full ROM Resp Effort & Inspection: normal respiratory effort and able to speak in complete sentences Neuro General: patient oriented x3 Extrem Left lower extremity: full ROM and foot Details: normal capillary refill, toes with normal ROM, warmth, edema Location: of the dorsal foot and of the medial foot, vascular exam Details: normal capillary refill and motor-sensory exam Details: light-touch normal; no abrasions, no lacerations and no ecchymosis Assessment & Plan Assessment & Plan (1) Cellulitis: Code(s): L03.90 - Cellulitis, unspecified Qualifiers: Laterality: left Site of cellulitis: extremity Site of cellulitis of extremity: upper extremity Qualified Code(s): L03.114 - Cellulitis of left upper limb Plan: Area where a sliver was is healing well, recommended keep soaking it and doxycycline for 1 week. Take with food and stay out of the sun. If no resolution in symptoms in the coming days, please follow-up with your PCP to ensure infection has not travelled to the bone. Plan see above Medications: New doxycycline hyclate 100 mg PO BID 14 tabs 0RF Coding Level of Care Code Est Pt Level 3 (64283) Diagnoses Cellulitis of left upper extremity L03.114 Laterality: left Site of cellulitis: extremity Site of cellulitis of extremity: upper extremity
== END 2024-04-03 08:39 | disposition home or self-care (01) ==
PROVIDERS: PCP Physician Assistant; Visit Provider Physician Assistant
DX: L03.114 Cellulitis of left upper limb (principal)
CPT/HCPCS: 99213

== ENCOUNTER 2024-07-03 08:48 | Outpatient (AMB) | payer BC, SELFPAY ==
[2024-07-03 08:51] VITALS: BP 112/74; PULSE 100; O2SAT 93; BMI 48.5
--- NOTE | 2024-07-03 08:51 | A.OFFPC_ITS ---
Vital Signs 07/03/24 08:51 Height 5 ft 8.5 in Weight 324 lb BMI 48.5 BP 112/74 Blood Pressure Location Lt brachial Position Sitting Pulse 100 Pulse Source Pulse Oximeter Pulse Oximetry (%) 93 Oxygen Delivery Method Room Air Intake Visit Reasons: f/u DMII Coordinator Cardiopulmonary Services Required: No Accompanied by: Self / Same As Patient Allergies dulaglutide [From [facility]] Adverse Reaction (Intermediate, Verified 07/03/24 08:57) Abdominal Pain metformin Adverse Reaction (Intermediate, Verified 07/03/24 08:57) Abdominal Pain Medication List - Last Reconciled 07/03/24 by Jose E Dougherty PA-C blood sugar diagnostic (FreeStyle Lite Strips) As directed blood-glucose meter (FreeStyle Lite Meter kit) As directed lancets (FreeStyle Lancets) As directed pioglitazone (Actos) 30 mg PO DAILY 90 days semaglutide (Ozempic) 0.5 mg (0.736 mL) subcut QWEEK 4 weeks simvastatin 40 mg PO DAILY 90 days Tobacco use date assessed: 11/28/23 Dental Screening Dental Screen Date: 11/28/23 HPI f/u DMII HPI0 Details Patient is a 64-year-old male here today for follow-up visit ? Patient has a past medical history significant obesity type 2 diabetes, hypertension. Concern--> 20 reports he has been having some postprandial abdominal pain and cramping with some loose stools over the last 3 months. He has lost weight since last office visit. PLAN: Plan to get ultrasound of abdomen evaluate his gallbladder. If no etiology found on ultrasound will consider GI evaluation. .. Type 2 diabetes:??At last visit we discussed patient's suboptimally controlled type 2 diabetes. Has been more physically active and He continues on Ozempic 0.5 mg. Has lost weight since last office visit We discussed going up to Ozempic 1 mg though has been having trouble obtaining this from pharmacy. .. Obesity: Has been continued on GLP1 and has noted continued weight loss. .. Hyperlipidemia: Continues on simvastatin 10 mg. goal LDL to be below 100 .. HTN:? Patient currently managing his blood pressure without medication.? Otherwise denies any headaches, vision issues, chest discomfort or shortness of breath. Laboratory Tests 03/10/23 06/07/23 06/07/23 10:46 10:50 12:08 RBC 5.29 Fasting Glucose 139 H Hgb A1c (Clinic) 6.4 H Cholesterol LDL Cholesterol, C alc 152 111 H 08/31/23 11/28/23 11/28/23 07:46 08:49 09:39 RBC Fasting Glucose 166 H Hgb A1c (Clinic) 8.5 H 7.6 H Cholesterol 157 LDL Cholesterol, C alc 02/28/24 08:36 RBC Fasting Glucose Hgb A1c (Clinic) 7.4 H Cholesterol LDL Cholesterol, C alc PFS Medical History Elevated cholesterol Diabetes HTN (hypertension) Morbid obesity Thrombosed hemorrhoids Perianal abscess Arthritis of carpometacarpal (CMC) joint of right thumb Surgical History Hx of excision of mass History of esophagogastroduodenoscopy (EGD) H/O colonoscopy Hx of umbilical hernia repair Family History Father Colon cancer Prostate cancer Mother Diabetes CVD (cardiovascular disease) Heart attack, Onset Age: 56 Social History Housing: House Alcohol intake: current Alcohol intake frequency: holidays/special occasions only Alcohol type: beer Patient Tobacco Use Status: Never used Tobacco Tobacco use type: Cigarette e-Cigarette/Vaping Use: Never Used Second Hand Smoke Exposure: No service: No Current occupational status: employed and retired 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 1. Little interest or pleasure in doing things: not at all 2. Feeling down, depressed, or hopeless: not at all 3. Trouble falling or staying asleep, or sleeping too much: not at all 4. Feeling tired or having little energy: not at all 5. Poor appetite or overeating: not at all 6. Feeling bad about yourself - or that you are a failure or have let yourself or your family down: not at all 7. Trouble concentrating on things, such as reading the newspaper or watching television: not at all 8. Moving or speaking so slowly that other people could have noticed. Or the opposite - being so fidgety or restless that you have been moving around a lot more than usual: not at all 9. Thoughts that you would be better off or of hurting yourself in some way: not at all Total score: 0 Depression Screening Interpretation: Negative Depression Screening Done: Yes 46066 - PHQ-9 Billing: Yes Source: Developed by Drs. Donald Hanna, Chanell Medina, Gurjit Grove and colleagues, with an educational brian from [employer]. Thrive Questionnaire Date Thrive assessed: 11/28/23 AUDIT C Alcohol Use Questionnaire (AUDIT-C) 1. How often do you have a drink containing alcohol?: Monthly or less 2. How many drinks containing alcohol do you have on a typical day when you are drinking?: 1 or 2 3. How often do you have six or more drinks on one occasion?: Never Total Score: 1 FARIDA-7 AMB Questionnaire FARIDA-7 Date FARIDA - 7 assessed: 11/28/23 Source: Developed by Drs. Donald Hanna, Chanell Medina, Gurjit Grove and colleagues, with an educational brian from [employer]. Review of Systems Const Denies headache(s) Eyes Denies loss of vision ENT Denies vertigo, Denies dizziness, Denies headache(s) and Denies sore throat Card Denies chest pain, Denies leg edema and Denies lightheadedness Resp Denies cough, Denies hemoptysis and Denies wheezing GI Denies abdominal pain, Denies melena, Denies constipation, Denies diarrhea and Denies vomiting Denies dysuria, Denies urinary frequency and Denies urinary urgency Musc Denies arthralgias, Denies joint swelling, Denies numbness and Denies tingling Neuro Denies Abnormal speech present, Denies behavioral changes, Denies vertigo, Den ies dizziness, Denies headache(s), Denies loss of vision, Denies memory loss, Denies numbness and Denies tingling Psych Denies anxiety, Denies behavioral changes, Denies depression, Denies memory loss and Denies panic attacks Schuyler/Lymph Denies easy bleeding and Denies easy bruising Aller/Immun Denies wheezing Physical exam (Primary Care) Vital Signs: Last Vital Signs Pulse 100 07/03/24 08:51 BP 112/74 07/03/24 08:51 Pulse Ox 93 07/03/24 08:51 Oxygen Delivery Method Room Air 07/03/24 08:51 BMI result Body Mass Index 48.5 Tobacco/Smoking Status: Tobacco use Status Tobacco use date assessed 11/28/23 07/03/24 08:54 Patient Tobacco Use Status Never used Tobacco 07/03/24 08:54 Tobacco use type Cigarette 07/03/24 08:54 e-Cigarette/Vaping Use Never Used 07/03/24 08:54 PHQ-9: PHQ-9 Score PHQ-9: Total score 0 07/03/24 09:15 Depression Screening Interpretation: Negative Thrive Assessment: Date of Thrive Assessment Date Thrive assessed 11/28/23 07/03/24 08:54 Const General: healthy appearing, no acute distress, alert and awake Nutritional Appearance: well nourished Orientation/consciousness: oriented to person, oriented to place and oriented to time HENMT Ears: TM's normal bilaterally General nose exam: Normal nasal mucous membranes and turbinates present Eyes Conjunctivae: conjunctivae normal Sclerae: sclerae normal Pupils: Equal, round and reactive pupils present Neck Neck: Yes no lymphadenopathy and Yes no JVD Thyroid: Thyroid normal Carotids: no bruits Resp Effort & Inspection: normal respiratory effort and not tachypneic Auscultation: no crackles, no rales, no rhonchi and no wheezes Cardio Rate: regular rate Rhythm: regular rhythm Heart sounds: no murmurs and normal S1 and S2 GI Palpation (GI): Soft to palpation, nontender, no hepatomegaly and no splenomegaly Auscultation: normal bowel sounds Skin General skin exam: no rashes or lesions noted and dry skin Neuro General: oriented to person, oriented to place and oriented to time Cranial nerves: Yes Equal, round and reactive pupils present Speech: No Abnormal speech present Gait exam (Neuro): Normal gait present Motor exam (neuro): no tremor noted Extrem Right upper extremity: full ROM Left upper extremity: full ROM Right lower extremity: full ROM; no edema Left lower extremity: full ROM; no edema Psych Mental Status: mental status grossly normal Speech and movement: Normal speech and movement present Affect: normal affect Attitude: cooperative Thought process: Normal thought process present Office Procedures Flu Questionnaire Does the patient have a severe egg allergy?: No Does the patient have severe life threatening allergies?: No Does the patient have a fever or illness today?: No Immunizations Fluarix Triv [id number] (PF) 45 mcg (15 mcg x 3)/0.5 mL IM syringe Performing Provider: Jose E Dougherty PA-C Performing Location: [facility] Administered by: SRINIVAS Amor on 07/03/24 09:15 Dose Route Admin Location Dispensed Lot Number Expiration Date NDC Book Jacket Cover Machine Operator 0.5 mL IM Left Deltoid 0.5 mL [id number] 03/11/25 [id number] [employer] MD[employer] VIS Given Date VIS Provided VIS Publication Date 07/03/24 Single Vaccine 21 Eligibility Eligibility Date Funding Source Not [facility] Eligible 07/03/24 Private Coding Level of Care Code Est Pt Level 4 (08796) Diagnoses Type 2 diabetes mellitus with hyperglycemia, without long-term current use of insulin E11.65 Diabetes mellitus complication status: with hyperglycemia 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: 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 use Mixed hyperlipidemia E78.2 Hyperlipidemia type: mixed hyperlipidemia Primary hypertension I10 Hypertension type: primary hypertension Postprandial abdominal pain in right upper quadrant R10.11 Assessment & Plan Assessment & Plan (1) DMII (diabetes mellitus, type 2): Code(s): E11.9 - Type 2 diabetes mellitus without complications Category: Medical Qualifiers: Diabetes mellitus complication status: with hyperglycemia 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 Has lost weight since last office visit. Continues on Ozempic 0.5 weekly and pioglitazone. Goal A1c is to be below 7.0 (2) HLD (hyperlipidemia): Code(s): E78.5 - Hyperlipidemia, unspecified Category: Medical Qualifiers: Hyperlipidemia type: mixed hyperlipidemia Qualified Code(s): E78.2 - Mixed hyperlipidemia Plan: Patient's most recent lipid panel showing excellent control of his total cholesterol and LDL. He does take simvastatin on an [id number] basis. Goal LDL is to remain below 100 (3) HTN (hypertension): Code(s): I10 - Essential (primary) hypertension Category: Medical Qualifiers: Hypertension type: primary hypertension Qualified Code(s): I10 - Essential (primary) hypertension Plan: Patient's blood pressure acceptable today in office. He will continue working on lifestyle and dietary modifications to reduce his high blood pressure. Goal blood pressures to remain below 140/90 (4) Postprandial abdominal pain in right upper quadrant: Code(s): R10.11 - Right upper quadrant pain Category: Medical Plan: Patient reports a 3 month history postprandial abdominal cramping and loose stool/diarrhea. Will send for abdominal ultrasound evaluate his gallbladder. Orders: Orders Lipid Panel 07/03/24 E78.5 - Hyperlipidemia, unspecified Influenza [id number] Immunization 07/03/24 Z23 - Encounter for immunization Hemoglobin A1c 07/03/24 E11.65 - Type 2 diabetes mellitus with hyperglycemia Comprehensive [place]. Panel Fast 07/03/24 E11.65 - Type 2 diabetes mellitus with hyperglycemia Patient Instructions: Goal: A1c to remain below 7.0 Barriers: Adherence to physical activity and healthy eating habits
== END 2024-07-03 09:16 | disposition home or self-care (01) ==
PROVIDERS: PCP Physician Assistant; Visit Provider Physician Assistant
DX: E11.65 Type 2 diabetes mellitus with hyperglycemia (principal); E78.2 Mixed hyperlipidemia; I10 Essential (primary) hypertension; R10.11 Right upper quadrant pain

== ENCOUNTER 2024-07-03 08:48 | Outpatient (REF) | payer BC, SELFPAY ==
[2024-07-03 11:02] LABS: Alanine Aminotransferase 20 U/L (0-40); Alkaline Phosphatase 64 U/L (39-117); Anion Gap 11 (12-20); Aspartate Amino Transferase 26 U/L (5-37); Bilirubin Total 0.7 mg/dL (0.0-1.0); Blood Urea Nitrogen 12 mg/dL (9-16); Calcium 9.7 mg/dL (8.4-10.2); Carbon Dioxide 27 mmol/L (22-29); Chloride 102 mmol/L (96-108); Cholesterol 199 mg/dL (<200); Estimated Average Glucose 146 mg/dL; Estimated Glomerular Filt Rate > 60; Glucose Fasting 168 mg/dL (60-99); HDL Cholesterol 36 mg/dL (>40); Hemoglobin A1C 252.9349 umol/L; Hemoglobin A1c % 6.7 % (<6.0); LDL Cholesterol Calculated 132 mg/dL (<100); Sodium 136 mmol/L (135-145); Total Hemoglobin (HGBA1C) 5072.5978 umol/L; Total Protein 7.3 g/dL (6.5-8.0); Triglycerides 155 mg/dL (<150)
== END 2024-07-03 08:49 | disposition home or self-care (01) ==
LOC: HO.LAB 08:48
PROVIDERS: PCP Physician Assistant; Visit Provider Physician Assistant
DX: E11.65 Type 2 diabetes mellitus with hyperglycemia (principal); E78.5 Hyperlipidemia, unspecified; Z23 Encounter for immunization
CPT/HCPCS: 36415; 80053; 80061; 83036; 90471; 90656

== ENCOUNTER 2024-11-05 08:40 | Outpatient (REF) | payer BC, SELFPAY ==
[2024-11-05 10:01] LABS: Hematocrit 47.6 % (42.0-52.0); Mean Corpuscular HGB Conc 33.6 g/dl (31.0-36.0); Mean Corpuscular Hemoglobin 30.5 pg (27.0-33.0); Mean Corpuscular Volume 90.7 fL (80.0-98.0); Mean Platelet Volume 8.6 fL (9.4-12.4); Platelet Count 201 X10*3/uL (160-400); Red Blood Count 5.25 X10*6/uL (4.60-5.80); White Blood Count 8.4 X10*3/uL (4.8-10.8)
[2024-11-05 11:11] LABS: Creatinine Urine 214.26 mg/dL; Microalbum/Creatinine Ratio Ur 3.2 ug/mg cr (<30)
[2024-11-05 11:22] LABS: Prostate Specific Antigen Scr 0.83 ng/mL (<0.05-4.0)
[2024-11-05 11:43] LABS: Alanine Aminotransferase 17 U/L (0-40); Alkaline Phosphatase 59 U/L (39-117); Anion Gap 14 (12-20); Aspartate Amino Transferase 23 U/L (5-37); Bilirubin Total 0.6 mg/dL (0.0-1.0); Blood Urea Nitrogen 18 mg/dL (9-16); Calcium 9.8 mg/dL (8.4-10.2); Carbon Dioxide 27 mmol/L (22-29); Chloride 106 mmol/L (96-108); Cholesterol 171 mg/dL (<200); Estimated Glomerular Filt Rate > 60; Glucose Fasting 138 mg/dL (60-99); HDL Cholesterol 42 mg/dL (>40); LDL Cholesterol Calculated 107 mg/dL (<100); Potassium 4.8 mmol/L (3.3-5.1); Sodium 142 mmol/L (135-145); Total Protein 7.8 g/dL (6.5-8.0); Triglycerides 110 mg/dL (<150)
== END 2024-11-05 08:41 | disposition home or self-care (01) ==
LOC: HO.LAB 08:40
PROVIDERS: PCP Physician Assistant; Visit Provider Physician Assistant
DX: I10 Essential (primary) hypertension (principal); E11.65 Type 2 diabetes mellitus with hyperglycemia; G25.0 Essential tremor; E78.2 Mixed hyperlipidemia; E66.01 Morbid (severe) obesity due to excess calories; Z68.42 Body mass index [BMI] 45.0-49.9, adult; Z79.84 Long term (current) use of oral hypoglycemic drugs; Z12.5 Encounter for screening for malignant neoplasm of prostate
CPT/HCPCS: 36415; 80053; 80061; 82043; 82570; 83036; 84153; 85027; 96127

== ENCOUNTER 2024-11-05 08:40 | Outpatient (AMB) | payer BC, SELFPAY ==
[2024-11-05 08:46] VITALS: BP 136/70; PULSE 88; O2SAT 97; BMI 49.7
--- NOTE | 2024-11-05 08:46 | MHC.PC.OV ---
Vital Signs 11/05/24 08:46 Height 5 ft 8.5 in Weight 332 lb BMI 49.7 BP 136/70 Blood Pressure Location Lt brachial Position Sitting Pulse 88 Pulse Source Pulse Oximeter Pulse Oximetry (%) 97 Oxygen Delivery Method Room Air Intake Visit Reasons: f/u DMII/ HLD [facility]ies [facility] Adverse Reaction (Intermediate, Verified 11/05/24 08:55) Abdominal Pain metformin Adverse Reaction (Intermediate, Verified 11/05/24 08:55) Abdominal Pain Medication List - Last Reconciled 11/05/24 by Jose E Dougherty PA-C blood sugar diagnostic (FreeStyle Lite Strips) As directed blood-glucose meter (FreeStyle Lite Meter kit) As directed lancets (FreeStyle Lancets) As directed pioglitazone (Actos) 30 mg PO DAILY 90 days semaglutide (Ozempic) 0.5 mg (0.736 mL) subcut QWEEK 4 weeks simvastatin 40 mg PO DAILY 90 days Tobacco use date assessed: 11/05/24 Dental Screening Dental Screen Date: 11/05/24 Did you have a dental visit in the last 12 months?: Yes Did you have a dental problem in the last 6 months where you did not have access to dental care?: No Was dental information given to patient?: Patient has dentist HPI f/u DMII/ HLD HPI Details Patient is a 64-year-old male here today for follow-up visit ? Patient has a past medical history significant obesity type 2 diabetes, hypertension. .. Type 2 diabetes:? Patient's type 2 diabetes well controlled with current dose of Actos and Ozempic. Today's A1c is 6.5 from 6.7. He continues on Ozempic 0.5 mg. Has lost weight since last office visit. He reports being alone more inactive during the winter months. .. Obesity: Additionally, there is a noted history of weight gain, approximately 8 pounds increase, from a previous weight of 324 pounds to 332 pounds since the fall. The patient attributes part of this to decreased physical activity during colder months. .. Hyperlipidemia: Continues on simvastatin 10 mg. goal LDL to be below 100 .. HTN:? Patient currently managing his blood pressure without medication.? Otherwise denies any headaches, vision issues, chest discomfort or shortness of breath. [facility] Medical History Elevated cholesterol Diabetes HTN (hypertension) Morbid obesity Thrombosed hemorrhoids Perianal abscess Arthritis of carpometacarpal (CMC) joint of right thumb Surgical History Hx of excision of mass History of esophagogastroduodenoscopy (EGD) H/O colonoscopy Hx of umbilical hernia repair Family History Father Colon cancer Prostate cancer Mother Diabetes CVD (cardiovascular disease) Heart attack, Onset Age: 56 Social History Housing: House Alcohol intake: current Alcohol intake frequency: holidays/special occasions only Alcohol type: beer Patient Tobacco Use Status: Never used Tobacco Tobacco use type: Cigarette e-Cigarette/Vaping Use: Never Used Second Hand Smoke Exposure: No service: No Current occupational status: employed and retired 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 1. Little interest or pleasure in doing things: not at all 2. Feeling down, depressed, or hopeless: not at all 3. Trouble falling or staying asleep, or sleeping too much: not at all 4. Feeling tired or having little energy: not at all 5. Poor appetite or overeating: not at all 6. Feeling bad about yourself - or that you are a failure or have let yourself or your family down: not at all 7. Trouble concentrating on things, such as reading the newspaper or watching television: not at all 8. Moving or speaking so slowly that other people could have noticed. Or the opposite - being so fidgety or restless that you have been moving around a lot more than usual: not at all 9. Thoughts that you would be better off or of hurting yourself in some way: not at all Total score: 0 Depression Screening Interpretation: Negative Depression Screening Done: Yes 70151 - PHQ-9 Billing: Yes Source: Developed by Drs. Donald Hanna, Chanell Medina, Gurjit Grove and colleagues, with an educational brian from [employer]. Thrive Questionnaire Date Thrive assessed: 11/05/24 I am a: Patient What is your living situation today?: I have a steady place to live Within the past 12 months, did the food you bought not last and you didn't have the money to get more?: Never true Within the past 12 months, did you worry whether your food would run out before you got money to buy more?: Never true Do you have trouble paying for medicines?: No Do you have trouble getting transportation to medical appointments?: No Do you have trouble paying your heating and electricity bill?: No Do you have trouble taking care of your child, family member or friend?: No Do you have trouble with day-to-day activities such as bathing, preparing meals, shopping, managing finances, etc.?: No Are you currently unemployed and looking for a job?: No Are you interested in more education?: No Currently or been in a relationship where the following occur: No concerns reported THRIVE Score: 0 AUDIT C Alcohol Use Questionnaire (AUDIT-C) 1. How often do you have a drink containing alcohol?: Monthly or less 2. How many drinks containing alcohol do you have on a typical day when you are drinking?: 1 or 2 3. How often do you have six or more drinks on one occasion?: Never Total Score: 1 FARIDA-7 AMB Questionnaire FARIDA-7 Date FARIDA - 7 assessed: 11/05/24 Feeling nervous, anxious, or on edge: 0 = Not at all Not being able to stop or control worryin = Not at all Worrying too much about different things: 0 = Not at all Trouble relaxin = Not at all Being so restless that it is hard to sit still: 0 = Not at all Becoming easily annoyed or irritable: 0 = Not at all Feeling afraid as if something awful might happen: 0 = Not at all Total FARIDA-7 score (0-4 normal; 5-9 mild; 10-14 moderate; 15-21 severe): 0 Source: Developed by Chanell Reyes, Gurjit Grove and colleagues, with an educational brian from [employer]. FARIDA-7 Assessment Billing FARIDA-7 Assessment Tool: FARIDA-7 Assessment 88794 Review of Systems Const Denies headache(s) Eyes Denies loss of vision ENT Denies vertigo, Denies dizziness, Denies headache(s) and Denies sore throat Card Denies chest pain, Denies leg edema and Denies lightheadedness Resp Denies cough, Denies hemoptysis and Denies wheezing GI Denies abdominal pain, Denies melena, Denies constipation, Denies diarrhea and Denies vomiting Denies dysuria, Denies urinary frequency and Denies urinary urgency Musc Denies arthralgias, Denies joint swelling, Denies numbness and Denies tingling Neuro Denies Abnormal speech present, Denies behavioral changes, Denies vertigo, Denies dizziness, Denies headache(s), Denies loss of vision, Denies memory loss, Denies numbness and Denies tingling Psych Denies anxiety, Denies behavioral changes, Denies depression, Denies memory loss and Denies panic attacks Schuyler/Lymph Denies easy bleeding and Denies easy bruising Aller/Immun Denies wheezing Physical exam (Primary Care) Vital Signs: Last Vital Signs Pulse 88 11/05/24 08:46 BP 136/70 11/05/24 08:46 Pulse Ox 97 11/05/24 08:46 Oxygen Delivery Method Room Air 11/05/24 08:46 BMI result Body Mass Index 49.7 BMI Assessment/Plan discussion: High BMI High, discussed plan: lifestyle, weight reduction, dietary and physical activity Tobacco/Smoking Status: Tobacco use Status Tobacco use date assessed 11/05/24 11/05/24 08:47 Patient Tobacco Use Status Never used Tobacco 11/05/24 08:47 Tobacco use type Cigarette 11/05/24 08:47 e-Cigarette/Vaping Use Never Used 11/05/24 08:47 PHQ-9: PHQ-9 Score PHQ-9: Total score 0 11/05/24 08:59 Depression Screening Interpretation: Negative Thrive Assessment: Date of Thrive Assessment Date Thrive assessed 11/05/24 11/05/24 08:47 Currently or been in a relationship where the following occur: No concerns reported Const General: healthy appearing, no acute distress, alert and awake Nutritional Appearance: well nourished Orientation/consciousness: oriented to person, oriented to place and oriented to time HENMT Ears: TM's normal bilaterally General nose exam: Normal nasal mucous membranes and turbinates present Eyes Conjunctivae: conjunctivae normal Sclerae: sclerae normal Pupils: Equal, round and reactive pupils present Neck Neck: Yes no lymphadenopathy and Yes no JVD Thyroid: Thyroid normal Carotids: no bruits Resp Effort & Inspection: normal respiratory effort and not tachypneic Auscultation: no crackles, no rales, no rhonchi and no wheezes Cardio Rate: regular rate Rhythm: regular rhythm Heart sounds: no murmurs and normal S1 and S2 GI Palpation (GI): Soft to palpation, nontender, no hepatomegaly and no splenomegaly Auscultation: normal bowel sounds Skin General skin exam: no rashes or lesions noted and dry skin Neuro General: oriented to person, oriented to place and oriented to time Cranial nerves: Yes Equal, round and reactive pupils present Speech: No Abnormal speech present Gait exam (Neuro): Normal gait present Motor exam (neuro): no tremor noted Extrem Right upper extremity: full ROM Left upper extremity: full ROM Right lower extremity: full ROM; no edema Left lower extremity: full ROM; no edema Psych Mental Status: mental status grossly normal Speech and movement: Normal speech and movement present Affect: normal affect Attitude: cooperative Thought process: Normal thought process present Results AMB Hemoglobin A1c AMB Hemoglobin A1c 6.5 % Last Edit by RAKEL Smith on 11/05/24 08:59 Results Reviewed Results Reviewed: Laboratory Last Values Hgb A1c (Clinic) 6.5 % (4.0-6.0) H 11/05/24 08:47 Coding Level of Care Code Est Pt Level 4 (89246) Diagnoses Type 2 diabetes mellitus with hyperglycemia, without long-term current use of insulin E11.65 Diabetes mellitus complication status: with hyperglycemia Diabetes mellitus intermediate project manager insulin use: without intermediate project manager use Essential tremor G25.0 Primary hypertension I10 Hypertension type: primary hypertension Mixed hyperlipidemia E78.2 Hyperlipidemia type: mixed hyperlipidemia Additional Codes FARIDA-7 Assessment Billing - FARIDA-7 Assessment Tool: FARIDA-7 Assessment 93650 ([id number]) PHQ-9 - 41004 - PHQ-9 Billing: Yes ([id number]) Assessment & Plan Assessment & Plan (1) DMII (diabetes mellitus, type 2): Code(s): E11.9 - Type 2 diabetes mellitus without complications Category: Medical Qualifiers: Diabetes mellitus complication status: with hyperglycemia Diabetes mellitus intermediate insulin use: without intermediate project manager use Qualified Code(s): E11.65 - Type 2 diabetes mellitus with hyperglycemia Plan: HbA1c levels are currently under control at 6.5. The patient's glucose levels will continue to be monitored, and a low carbohydrate diet is reinforced. Considering past adverse reactions to Ozempic and Trulicity, the patient is maintaining the current dose; however, Terzepatide (a similar medication) is discussed for potential future weight management. (2) Essential tremor: Code(s): G25.0 - Essential tremor Category: Medical Plan: Occupational therapy could be beneficial in managing daily activities affected by tremor. The patient opts against medication at this time, exploring physical/occupational therapy as an option. (3) HTN (hypertension): Code(s): I10 - Essential (primary) hypertension Category: Medical Qualifiers: Hypertension type: primary hypertension Qualified Code(s): I10 - Essential (primary) hypertension Plan: Blood pressure readings are stable; continue current antihypertensive management. Encourage exercise to further aid in control. Goal blood pressure to remain below 140/90 (4) HLD (hyperlipidemia): Code(s): E78.5 - Hyperlipidemia, unspecified Category: Medical Qualifiers: Hyperlipidemia type: mixed hyperlipidemia Qualified Code(s): E78.2 - Mixed hyperlipidemia Plan: Continue management with diet focusing on reducing saturated fat intake. Discussed cardiovascular risk reduction. Orders: Orders AMB Hemoglobin A1c Today Z13.9 - Encounter for screening, unspecified Prostate Specific Antigen Scr Today I10 - Essential (primary) hypertension, Z12.5 - Encounter for screening for malignant neoplasm of prostate Lipid Panel Today E78.2 - Mixed hyperlipidemia Microalbumin, Random (w Creat) Today I10 - Essential (primary) hypertension Comprehensive [place]. Panel Fast Today I10 - Essential (primary) hypertension Complete Blood Count no Diff Today I10 - Essential (primary) hypertension Medications: Refilled pioglitazone (Actos) 30 mg PO DAILY 90 tabs 1RF 90 days E11.65 - Type 2 diabetes mellitus with hyperglycemia Patient Instructions: Goal: Blood pressure to remain below 140/90, LDL to be below 100 Barriers: Adherence to physical activity and healthy eating habits
--- OUTSIDE RECORDS SUMMARY | 2024-11-05 09:09 | XMS_ITS | Patient Health Record ---
Author Organization [facility] Address [address] [place] [address] Care Team Providers Care Supervisory Geographer Name Role Phone Jose E Dougherty Primary Care Provider Unavailab Donald Thompson Unavailable [phone] ALLERGIES No Known Allergies REASON FOR REFERRAL No Information MEDICATIONS Medication SIG (Take, Route, Fr equency, Duration) Notes Start Date End Date Status Pioglitazone HCl 15 MG TAKE 1 TABLET BY MOUTH DAILY Diagnosis Unavailable Oral for 90 Active IMMUNIZATIONS Vaccine Route Administration Date Status Comme nts Influenza Unknown 04/08/2022 Refused SOCIAL HISTORY Sex Assigned At : Social History Observation Description Sex Assigned At Unknown PROBLEMS Problem Type ICD Code Onset Dates Problem Status W/U Status Risk SNOMED Code Notes Problem Encounter for screening for malignant neoplasm of colon (Z12.11) Active confirmed 088252391 Problem Encounter for screening for malignant neoplasm of rectum (Z12.12) Active confirmed Screening fo r malignant neoplasm of rectum (415922625) Problem Preprocedural examination (Z01.818) Active confirmed 372702863 Problem Family history of colon cancer (Z80.0) Active confirmed 142815928 Problem Diverticulosis of colon (K57.30) Active confirmed Diverticulosi s of colon (690560442) PLAN OF TREATMENT Future Test Test Name Order Date UPPER GI ENDOSCOPY 12/28/2011 COLONOSCOPY 12/28/2011 COLONOSCOPY 12/10/2016 COLONOSCOPY 04/08/2022 Insurance Providers Payer Name Payer Address Payer Phone Subscriber Number Group Number Insured Name Patient Relationship to Insured Coverage Start Date Coverage End Date [facility] [address] [facility] [phone] [id number] CARLOS PETERSON Self - patient is the insured MEDICAL (GENERAL) HISTORY Medical History History ICD Code Denies [place],DM,CVA,Lung disease,renal dise ase Hyperlipidemia Colonoscopy 01/2012--hyperplastic polyp EGD 01/2012--negative for hiatal hernia, esophagitis, and Decker's esophagus NIDDM Colonoscopy 02/2017 with a hyperplastic p olyp removed Surgical History Surgery Date(Month/Year) Cyst on neck removed Umbilical hernia
== END 2024-11-05 09:11 | disposition home or self-care (01) ==
PROVIDERS: PCP Physician Assistant; Visit Provider Physician Assistant
DX: E11.65 Type 2 diabetes mellitus with hyperglycemia (principal); G25.0 Essential tremor; I10 Essential (primary) hypertension; E78.2 Mixed hyperlipidemia; Z13.9 Encounter for screening, unspecified

== ENCOUNTER 2025-01-23 10:49 | Outpatient (REF) | payer BC, SELFPAY ==
--- NOTE | ~2025-01-23 | XR_ITS ---
EXAMINATION: XR CERVICAL SPINE CLINICAL INFORMATION: M54.12 - Radiculopathy, cervical region COMPARISON: None available. TECHNIQUE: 3 views of the cervical spine were obtained. FINDINGS: No scoliosis. Normal lordosis. No subluxations. Difficult to visualize C7-T1 on the lateral projections due to body habitus. No fractures, compression deformities, or suspicious bone lesions. The craniocervical junction is intact. The C1-2 articulation is aligned. Mild to moderate disc degeneration present C5-6 and C6-7. Normal facet alignment without significant facet arthrosis. No prevertebral or paravertebral soft tissue abnormality. Lung apices appear clear. XR/XR cervical spine 3V IMPRESSION: 1. No acute bony abnormalities. 2. Mild to moderate disc degeneration most significant C5-6 and C6-7. Electronically signed by: Balaji Van MD 01/23/2025 12:34 PM EDT
--- NOTE | ~2025-01-23 | XR_ITS ---
EXAMINATION: XR SHOULDER, RIGHT CLINICAL INFORMATION: M54.12 - Radiculopathy, cervical region COMPARISON: 10/13/20. TECHNIQUE: AP external rotation, Grashey, scapular Y, and axillary views of the right shoulder. FINDINGS: Normal bone mineralization. No fracture, dislocation, or suspicious bone lesion. Normal alignment. The glenohumeral joint demonstrates mild to moderate degenerative arthritic changes. The AC joint demonstrates mild degenerative arthritic changes with predominantly superior surface spurring. There is a neutral lateral acromion. No undersurface spurring. The subacromial space is preserved. Remainder of the soft tissue and bony structures appear normal. XR/XR shoulder RT min 2V IMPRESSION: 1. No acute bony abnormalities identified. 2. Mild to moderate degenerative arthritis in the glenohumeral joint. Electronically signed by: Balaji Van MD 01/23/2025 12:32 PM EDT
== END 2025-01-23 10:50 | disposition home or self-care (01) ==
LOC: HO.HMGCX 10:49
PROVIDERS: PCP Physician Assistant; Visit Provider Physician Assistant
DX: M54.12 Radiculopathy, cervical region (principal)
CPT/HCPCS: 72040; 73030

== ENCOUNTER 2025-01-23 10:49 | Outpatient (AMB) | payer BC, SELFPAY ==
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
[2025-01-23 11:30] VITALS: BP 122/78; PULSE 98; TEMP 36.7; O2SAT 97; BMI 50.3
--- OUTSIDE RECORDS SUMMARY | 2025-01-23 11:55 | XMS_ITS | Patient Health Record ---
Author Organization [facility] Address [address] [place] [address] Care Team Providers Care Stadium Manager Name Role Phone Jose E Dougherty Primary Care Provider Unavailab Donald hTompson Unavailable [phone] Allergies No Known Allergies Reason For Referral No Information Medications Medication SIG (Take, Route, Fr equency, Duration) Notes Start Date End Date Status Pioglitazone HCl 15 MG TAKE 1 TABLET BY MOUTH DAILY Diagnosis Unavailable Oral for 90 Active Immunizations Vaccine Route Administration Date Status Comme nts Influenza Unknown 04/08/2022 Refused Problems Problem Type SNOMED Code ICD Code Onset Dates Problem Status W/U Status Risk Notes Problem [id number] Encounter for screening for malignant neoplasm of colon (Z12.11) Active confirmed Problem Screening for malignant neoplasm of rectum (170112541) Encounter for screening for malignant neoplasm of rectum (Z12.12) Active confirmed Problem 265372543 Preprocedural examination (Z01.818) Active confirmed Problem 651334414 Family history o f colon cancer (Z80.0) Active confirmed Problem Diverticulosis of colon (777822036) Diverticulosis of colon (K57.30) Active confirmed Plan Of Treatment Future Test Test Name Order Date UPPER GI ENDOSCOPY 12/28/2011 COLONOSCOPY 12/28/2011 COLONOSCOPY 12/10/2016 COLONOSCOPY 04/08/2022 Insurance Providers Payer Name Payer Address Payer Phone Subscriber Number Group Number Insured Name Patient Relationship to Insured Coverage Start Date Coverage End Date [facility] [address] [facility] [phone] [id number] CARLOS PETERSON Self - patient is the insured Medical (General) History Medical History History ICD Code Denies [place],DM,CVA,Lung disease,renal dise ase Hyperlipidemia Colonoscopy 01/2012--hyperplastic polyp EGD 01/2012--negative for hiatal hernia, esophagitis, and Decker's esophagus NIDDM Colonoscopy 02/2017 with a hyperplastic p olyp removed Surgical History Surgery Date(Month/Year) Cyst on neck removed Umbilical hernia
== END 2025-01-23 12:28 | disposition home or self-care (01) ==
PROVIDERS: PCP Physician Assistant; Visit Provider Physician Assistant
DX: M54.12 Radiculopathy, cervical region (principal)

== ENCOUNTER → 2025-01-23 11:51 | Outpatient (BNV) | payer BC, SELFPAY | PROVIDERS: PCP Physician Assistant; Visit Provider Radiology Diagnostic Radiology | DX: M50.322 Other cervical disc degeneration at C5-C6 level (principal); M50.323 Other cervical disc degeneration at C6-C7 level; M19.011 Primary osteoarthritis, right shoulder | CPT/HCPCS: 72040; 73030 ==

== ENCOUNTER 2025-05-14 09:25 | Outpatient (AMB) | payer BC, SELFPAY ==
--- NOTE | 2025-05-14 09:42 | A.OFFPC_ITS ---
Vital Signs 05/14/25 09:43 Height 5 ft 8.5 in Weight 320 lb 2 oz BMI 48.0 BP 130/82 Blood Pressure Location Lt brachial Position Sitting Pulse 87 Pulse Source Pulse Oximeter Temp 97.1 F Temp Source Temporal Artery Scan Pulse Oximetry (%) 97 Oxygen Delivery Method Room Air Intake Visit Reasons: pe Intake Note: Patient is here today for a physical. Take Off Worker Required: No Data Processing Manager: Not Required per policy Accompanied by: Self / Same As Patient Allergies dulaglutide (From [facility]) Adverse Reaction (Intermediate, Verified 05/14/25 09:56) Abdominal Pain metformin Adverse Reaction (Intermediate, Verified 05/14/25 09:56) Abdominal Pain Medication List - Last Reconciled 05/14/25 by Jose E Dougherty PA-C blood sugar diagnostic (FreeStyle Lite Strips) As directed blood-glucose meter (FreeStyle Lite Meter kit) As directed lancets (FreeStyle Lancets) As directed methocarbamol 750 mg PO Q8H pioglitazone (Actos) 30 mg PO DAILY 90 days semaglutide (Ozempic) 0.5 mg (0.736 mL) subcut QWEEK 4 weeks simvastatin 40 mg PO DAILY 90 days Tobacco use date assessed: 05/14/25 Dental Screening Dental Screen Date: 11/05/24 HPI pe HPI Details Patient is a 65-year-old male here today for routine annual physical. ? Patient has a past medical history significant obesity type 2 diabetes, hypertension. .. Type 2 diabetes:? Patient reports stopping all of his medication over the last several months. Has lost weight. Today's A1c is 7.4 from 6.5. PLAN: Will restart Ozempic as he did have better glycemic control , will hold off on restarting Actos at this time. . Essential tremor: The patient experiences symptoms consistent with Essential Tremor, characterized by hand tremors when at rest. Therapy and medication options were discussed as potential interventions. .. Class 3 Obesity: Has noted weight loss since last office visit, today's BMI at 48. He has not been taking any of his medications The patient attributes part of this to decreased physical activity during colder months. .. Hyperlipidemia: Has stopped cholesterol medication. Will recheck lipid panel. goal LDL to be below 100 .. HTN:? Patient currently managing his blood pressure without medication.? Otherwise denies any headaches, vision issues, chest discomfort or shortness of breath. Colonoscopy: ( does have family history of colon cancer) 2021- tubular adenoma polyps found, repeat 5 years Vaccines:? Up-to-date with pneumonia and tetanus vaccine, up-to-date with COVID Moderna vaccine, ?considering shingles vaccine [facility] Medical History (Updated 05/14/25 @ 10:13 by Jose E Dougherty PA-C) Elevated cholesterol Diabetes HTN (hypertension) Thrombosed hemorrhoids Perianal abscess Arthritis of carpometacarpal (CMC) joint of right thumb Surgical History Hx of excision of mass History of esophagogastroduodenoscopy (EGD) H/O colonoscopy Hx of umbilical hernia repair Family History Father Colon cancer Prostate cancer Mother Diabetes CVD (cardiovascular disease) Heart attack, Onset Age: 58 Social History Housing: House Alcohol intake: current Alcohol intake frequency: holidays/special occasions only Alcohol type: beer Patient Tobacco Use Status: Never used Tobacco Tobacco use type: Cigarette e-Cigarette/Vaping Use: Never Used Second Hand Smoke Exposure: No service: No Current occupational status: retired Current occupation: [employer] Work[employer]- retired Cognitive needs: No Hearing needs: No Vision needs: No Questionnaire PHQ-9 Over the last 2 weeks, how often have you been bothered by any of the following problems? 1. Little interest or pleasure in doing things: not at all 2. Feeling down, depressed, or hopeless: not at all 3. Trouble falling or staying asleep, or sleeping too much: not at all 4. Feeling tired or having little energy: not at all 5. Poor appetite or overeating: not at all 6. Feeling bad about yourself - or that you are a failure or have let yourself or your family down: not at all 7. Trouble concentrating on things, such as reading the newspaper or watching television: not at all 8. Moving or speaking so slowly that other people could have noticed. Or the opposite - being so fidgety or restless that you have been moving around a lot more than usual: not at all 9. Thoughts that you would be better off or of hurting yourself in some way: not at all Total score: 0 Depression Screening Interpretation: Negative Depression Screening Done: Yes 02020 - PHQ-9 Billing: Yes Source: Developed by Drs. Donald Hanna, Chanell Medina, Gurjit Grove and colleagues, with an educational brian from [employer]. Thrive Questionnaire Date Thrive assessed: 11/05/24 I am a: Patient What is your living situation today?: I have a steady place to live Within the past 12 months, did the food you bought not last and you didn't have the money to get more?: Never true Within the past 12 months, did you worry whether your food would run out before you got money to buy more?: Never true Do you have trouble paying for medicines?: No Do you have trouble getting transportation to medical appointments?: No Do you have trouble paying your heating and electricity bill?: No Do you have trouble taking care of your child, family member or friend?: No Do you have trouble with day-to-day activities such as bathing, preparing meals, shopping, managing finances, etc.?: No Are you currently unemployed and looking for a job?: No Are you interested in more education?: No Please select the resources that you would like help with: None Currently or been in a relationship where the following occur: No concerns reported THRIVE Score: 0 AUDIT C Alcohol Use Questionnaire (AUDIT-C) 1. How often do you have a drink containing alcohol?: Never Total Score: 0 FARIDA-7 AMB Questionnaire FARIDA-7 Date FARIDA - 7 assessed: 11/05/24 Feeling nervous, anxious, or on edge: 0 = Not at all Not being able to stop or control worryin = Not at all Worrying too much about different things: 0 = Not at all Trouble relaxin = Not at all Being so restless that it is hard to sit still: 0 = Not at all Becoming easily annoyed or irritable: 0 = Not at all Feeling afraid as if something awful might happen: 0 = Not at all Total FARIDA-7 score (0-4 normal; 5-9 mild; 10-14 moderate; 15-21 severe): 0 Source: Developed by Drs. Donald Hanna, Chanell Medina, Gurjit Grove and colleagues, with an educational brian from [employer]. FARIDA-7 Assessment Billing FARIDA-7 Assessment Tool: FARIDA-7 Assessment 84646 Review of Systems Const Denies body aches, Denies chills, Denies excessive sweating, Denies fatigue, Denies fever(s) and Denies headache(s) Eyes Denies blurry vision ENT Denies dysphagia, Denies vertigo, Denies dizziness, Denies headache(s), Denies hearing loss and Denies tinnitus Card Denies chest pain, Denies chest pain with activity, Denies syncope, Denies irregular heart rhythm and Denies dyspnea Resp Denies chest congestion, Denies cough, Denies hemoptysis, Denies dyspnea and Denies wheezing GI Denies abdominal pain, Denies melena, Denies hematochezia, Denies coffee ground emesis, Denies dysphagia, Denies diarrhea, Denies nausea and Denies vomiting Denies difficulty urinating, Denies dysuria, Denies urinary frequency, Denies urinary hesitancy and Denies urinary urgency Musc Denies arthralgias, Denies limited range of motion, Denies muscle cramps and Denies muscle weakness Skin/Breast Denies rash and Denies skin ulcer Neuro Denies Abnormal speech present, Denies confusion, Denies vertigo, Denies dizziness, Denies syncope, Denies headache(s), Denies memory loss and Denies seizure-like activity Psych Denies anxiety, Denies confusion, Denies depression, Denies memory loss, Denies panic attacks and Denies paranoia Endo Denies excessive sweating, Denies fatigue, Denies flushing, Denies polydipsia and Denies polyuria Aller/Immun Denies wheezing Physical exam (Primary Care) Vital Signs: Last Vital Signs Temp 97.1 F 05/14/25 09:43 Pulse 87 05/14/25 09:43 BP 130/82 05/14/25 09:43 Pulse Ox 97 05/14/25 09:43 Oxygen Delivery Method Room Air 05/14/25 09:43 BMI result Body Mass Index 48.0 BMI Assessment/Plan discussion: High BMI High, discussed plan: lifestyle, weight reduction, dietary and physical activity Tobacco/Smoking Status: Tobacco use Status Tobacco use date assessed 05/14/25 05/14/25 09:51 Patient Tobacco Use Status Never used Tobacco 05/14/25 09:51 Tobacco use type Cigarette 05/14/25 09:51 e-Cigarette/Vaping Use Never Used 05/14/25 09:51 PHQ-9: PHQ-9 Score PHQ-9: Total score 0 05/14/25 09:51 Depression Screening Interpretation: Negative Thrive Assessment: Date of Thrive Assessment Date Thrive assessed 11/05/24 05/14/25 09:51 Currently or been in a relationship where the following occur: No concerns reported Const General: cooperative, comfortable, no acute distress, alert and awake; No confusion Orientation/consciousness: oriented to person, oriented to place, patient oriented x3 and No confusion HENMT Head: Yes normocephalic Ears: external ears normal and TM's normal bilaterally Face and sinus: No sinus tenderness Mouth: Normal oral and palatal mucosa present and tongue normal Teeth and gingiva: dentition normal and gingiva normal Throat: Yes posterior oropharynx normal, Yes tonsils normal and Yes uvula midline Eyes Conjunctivae: conjunctivae normal Sclerae: sclerae normal Pupils: Equal, round and reactive pupils present EOM: EOMs intact bilaterally Direct Ophthalmoscopy: No no photophobia Neck Neck: Yes no lymphadenopathy, No tender and Yes no JVD Thyroid: Thyroid normal Carotids: no bruits Chest Chest palpation & inspection: no tenderness Resp Effort & Inspection: normal respiratory effort, no audible wheezes, not labored and no stridor Auscultation: no crackles, no rales, no rhonchi and no wheezes Cardio Jugular venous distension: no JVD Rate: regular rate, not bradycardic and not tachycardic Rhythm: regular rhythm Bruits: no carotid bruits Peripheral pulses: Peripheral pulses 2+ throughout GI Inspection: Yes normal to inspection, No abdominal wall ecchymosis and No visibl e herniation Palpation (GI): Soft to palpation, nontender, no guarding, not rigid and No hepatosplenomegaly present Auscultation: normoactive bowel sounds General: Yes no CVA tenderness Back/Spine/Pelvis Back: no CVA tenderness and No back tenderness Cervical Spine: cervical ROM normal Thoracic/Lumbar Spine: thoracic and lumbar spine normal to inspection, straight leg raise negative bilaterally, No thoraco-lumbar ROM limited and No lumbar spinal tenderness Skin Lesions: no lesions Rashes: no rashes Wounds: no wounds Neuro General: oriented to person, oriented to place, patient oriented x3, CN's II-XI intact bilaterally and No confusion Cranial nerves: Yes Equal, round and reactive pupils present and Yes Normal accommodation reflex present Cognition (Neuro): normal cognition Speech: No Abnormal speech present Gait exam (Neuro): Normal gait present Motor exam (neuro): 5/5 motor strength present throughout Extrem Right upper extremity: full ROM; no cyanosis Left upper extremity: full ROM; no cyanosis Right lower extremity: no edema Left lower extremity: no edema Psych Appearance: grossly normal Mental Status: mental status grossly normal Affect: normal affect Attitude: cooperative Thought process: Normal thought process present Results AMB Hemoglobin A1c AMB Hemoglobin A1c 7.4 % Last Edit by RAKEL Smith on 05/14/25 09:56 Coding Level of Care Code Est Pt Prev Care 40-64y(30280) Diagnoses Annual physical exam Z00.00 Type 2 diabetes mellitus with hyperglycemia, without long-term current use of insulin E11.65 Diabetes mellitus intermediate insulin use: without inspector plating use Diabetes mellitus complication status: with hyperglycemia Essential tremor G25.0 Primary hypertension I10 Hypertension type: primary hypertension Mixed hyperlipidemia E78.2 Hyperlipidemia type: mixed hyperlipidemia Class 3 obesity E66.813 Additional Codes PHQ-9 - 05266 - PHQ-9 Billing: Yes ([id number]) FARIDA-7 Assessment Billing - FARIDA-7 Assessment Tool: FARIDA-7 Assessment 42628 ([id number]) Assessment & Plan Assessment & Plan (1) Annual physical exam: Code(s): Z00.00 - Encounter for general adult medical examination without abnormal findings Category: Medical Plan: As per HPI (2) DMII (diabetes mellitus, type 2): Code(s): E11.9 - Type 2 diabetes mellitus without complications Category: Medical Qualifiers: Diabetes mellitus intermediate insulin use: without inspector plating use Diabetes mellitus complication status: with hyperglycemia Qualified Code(s): E11.65 - Type 2 diabetes mellitus with hyperglycemia Plan: Type 2 diabetes suboptimally controlled with A1c today is 7.4. He reports he has stopped all his medication in his willing to restart Ozempic for glycemic control and weight reduction. Goal A1c is to be below 7.0 (3) Essential tremor: Code(s): G25.0 - Essential tremor Category: Medical Plan: Occupational therapy could be beneficial in managing daily activities affected by tremor. The patient opts against medication at this time, exploring physical/occupational therapy as an option. (4) HTN (hypertension): Code(s): I10 - Essential (primary) hypertension Category: Medical Qualifiers: Hypertension type: primary hypertension Qualified Code(s): I10 - Essential (primary) hypertension Plan: Blood pressure readings are stable; continue current antihypertensive management. Encourage exercise to further aid in control. Goal blood pressure to remain below 140/90 (5) HLD (hyperlipidemia): Code(s): E78.5 - Hyperlipidemia, unspecified Category: Medical Qualifiers: Hyperlipidemia type: mixed hyperlipidemia Qualified Code(s): E78.2 - Mixed hyperlipidemia Plan: Continue management with diet focusing on reducing saturated fat intake. Discussed cardiovascular risk reduction. Goal LDL to be below 100 (6) Class 3 obesity: Code(s): E66.813 - Obesity, class 3 Category: Medical Plan: Has noted weight loss since last office visit. He reports being more physically active throughout the summer as he is an avid swimmer. He is willing to restart GLP 1 therapy to help him with weight reduction as well. Orders: Orders AMB Hemoglobin A1c Today E11.65 - Type 2 diabetes mellitus with hyperglycemia Lipid Panel Today E78.2 - Mixed hyperlipidemia Comprehensive [place]. Panel Fast Today E11.65 - Type 2 diabetes mellitus with hyperglycemia Complete Blood Count no Diff Today E11.65 - Type 2 diabetes mellitus with hyperglycemia Medications: Refilled semaglutide (Ozempic) 0.5 mg (0.736 mL) subcut QWEEK 3 mL 3RF 4 weeks E11.65 - Type 2 diabetes mellitus with hyperglycemia simvastatin 40 mg PO DAILY 90 tabs 1RF 90 days E78.5 - Hyperlipidemia, unspecified
[2025-05-14 09:43] VITALS: BP 130/82; PULSE 87; TEMP 36.2; O2SAT 97; BMI 48.0
--- OUTSIDE RECORDS SUMMARY | 2025-05-14 10:25 | XMS_ITS | Patient Health Record ---
Author Organization [facility] Address [address] [place] [address] Care Team Providers Care Bench Examiner Name Role Phone Jose E Dougherty Primary Care Provider Unavailab Donald Thompson Unavailable [phone] Allergies No Known Allergies Reason For Referral [...] Problem Status W/U Status Risk Notes Problem [id number] Encounter for screening for malignant neoplasm of colon (Z12.11) Active confirmed Problem Screening for malignant neoplasm of rectum (494376610) Encounter for screening for malignant neoplasm of rectum (Z12.12) Active confirmed Problem [id number] Preprocedural examination (Z01.818) Active confirmed Problem [id number] Family history o f colon cancer (Z80.0) Active confirmed Problem Diverticulosis of colon (644370415) Diverticulosis of colon (K57.30) Active confirmed Plan Of Treatment Future Test Test Name Order Date UPPER GI ENDOSCOPY 12/28/2011 COLONOSCOPY 12/28/2011 COLONOSCOPY 12/10/2016 COLONOSCOPY 04/08/2022 Insurance Providers Payer Name Payer Address Payer Phone Subscriber Number Group Number Insured Name Patient Relationship to Insured Coverage Start Date Coverage End Date [facility] [address] [facility] [phone] [id number] CARLOS PETERSON Self - patient is the insured Medical (General) History Medical History History ICD Code Denies ME,DM,CVA,Lung disease,renal dise ase Hyperlipidemia Colonoscopy 01/2012--hyperplastic polyp EGD 01/2012--negative for hiatal hernia, esophagitis, and Decker's esophagus NIDDM Colonoscopy 02/2017 with a hyperplastic p olyp removed Surgical History Surgery Date(Month/Year) Cyst on neck removed Umbilical hernia
--- OUTSIDE RECORDS SUMMARY | 2025-05-14 10:25 | XMS_ITS | Clinical Summary ---
Author Organization [facility] Address [address] [place] [id number] Phone Care Team Providers Care School Director Name Role Phone Jose E Dougherty Primary Care Provider + Allergies No known active allergies Medications lidocaine (XYLOCAINE) 2 % mucosal gel jelly Apply topically as needed. 30 mL Active Active Problems No known active problems Social History Tobacco Use Types Packs/Day Years Used Date Smoking Tobacco: Never Alcohol Use Standard Drinks/Week Comments Yes 0 (1 standard drink = 0.6 oz pur e alcohol) rare Education Answer Date Recorded Are you interested in more education? Not on deanna e 01/08/2023 Are you concerned about learning? Not on file 01/08/2023 No 01/08/2023 No 01/08/2023 Digital Access Answer Date Recorded No 02/08/2023 No 02/08/2023 Reliable internet access at home? Not on file 02/08/2023 Device with a working camera? Not on file Sex and Gender Information Value Date Recorded Sex Assigned at Male 09/30/2021 7:33 PM EST Legal Sex Male 5:54 PM EST Gender Identity Male 09/30/2021 7:33 PM EST Sexual Orientation Straight 09/30/2021 7: 33 PM EST Last Filed Vital Signs Vital Sign Reading Time Taken Comments Blood Pressure 126/64 09/30/2021 11:00 PM EST Pulse 83 09/30/2021 11:00 PM EST Temperature 36.6 C (97.9 F) 09/30/2021 11:00 PM EST Respiratory Rate 20 09/30/2021 11:00 PM EST Oxygen Saturation 98% 09/30/2021 11:00 PM EST Inhaled Oxygen Concentration - - Weight 149.7 kg (330 lb) 09/30/2021 7:30 PM EST Height - - Body Mass Index - - Plan of Treatment Not on file Medical Devices Not on file Insurance O H[place] [address] [address] [address] HMO HMO HMO Care Teams School Director Relationship Specialty Start Date End Date Jose E Dougherty PA [address] [place] [address] PCP - General 09/30/21 Additional Source Comments The information contained in this document represents components of the legal health record. It is not the complete legal health record.[facility]
== END 2025-05-14 10:15 | disposition home or self-care (01) ==
LOC: HO.HMCH 09:26
PROVIDERS: PCP Physician Assistant; Visit Provider Physician Assistant
DX: Z00.00 Encounter for general adult medical examination without abnormal findings (principal); E11.65 Type 2 diabetes mellitus with hyperglycemia; Z68.42 Body mass index [BMI] 45.0-49.9, adult; E66.813 Obesity, class 3; G25.0 Essential tremor; I10 Essential (primary) hypertension; E78.2 Mixed hyperlipidemia

== ENCOUNTER 2025-05-14 09:25 | Outpatient (REF) | payer BC, SELFPAY ==
[2025-05-14 11:04] LABS: Hematocrit 48.2 % (42.0-52.0); Hemoglobin 16.0 g/dl (14.0-18.0); Mean Corpuscular HGB Conc 33.2 g/dl (31.0-36.0); Mean Corpuscular Hemoglobin 30.4 pg (27.0-33.0); Mean Corpuscular Volume 91.6 fL (80.0-98.0); NRBC Abs Auto 0.000 X10*3/uL (0.0-0.012); NRBC Pct Auto 0.0 /100WBC (0.0-0.2); Platelet Count 211 X10*3/uL (160-400); Red Blood Count 5.26 X10*6/uL (4.60-5.80); White Blood Count 8.4 X10*3/uL (4.8-10.8)
[2025-05-14 12:02] LABS: Alanine Aminotransferase 21 U/L (0-40); Albumin Level 4.3 g/dL (3.5-5.0); Alkaline Phosphatase 64 U/L (39-117); Anion Gap 15 (12-20); Aspartate Amino Transferase 26 U/L (5-37); Blood Urea Nitrogen 14 mg/dL (9-16); Calcium 9.4 mg/dL (8.4-10.2); Carbon Dioxide 26 mmol/L (22-29); Chloride 103 mmol/L (96-108); Cholesterol 220 mg/dL (<200); Estimated Glomerular Filt Rate > 60; HDL Cholesterol 37 mg/dL (>40); Potassium 4.5 mmol/L (3.3-5.1); Sodium 139 mmol/L (135-145); Total Protein 7.5 g/dL (6.5-8.0); Triglycerides 140 mg/dL (<150)
== END 2025-05-14 09:26 | disposition home or self-care (01) ==
LOC: HO.LAB 09:25
PROVIDERS: PCP Physician Assistant; Visit Provider Physician Assistant
DX: Z00.00 Encounter for general adult medical examination without abnormal findings (principal); E11.65 Type 2 diabetes mellitus with hyperglycemia; G25.0 Essential tremor; I10 Essential (primary) hypertension; E78.2 Mixed hyperlipidemia; E66.813 Obesity, class 3
CPT/HCPCS: 36415; 80053; 80061; 83036; 85027; 96127

== ENCOUNTER 2025-07-10 07:07 | Outpatient (AMB) | payer BC, SELFPAY ==
--- OUTSIDE RECORDS SUMMARY | 2025-07-10 07:09 | XMS_ITS | Clinical Summary ---
Author Organization [facility] Address [address] [place] [address] Phone Care Team Providers Care Inbound Customer Service Representative Name Role Phone Jose E Dougherty Primary [...] Insurance O H[place] [address] HMO HMO HMO Care Teams Inbound Customer Service Representative Relationship Specialty Start Date End Date Jose E Dougherty PA [address] [place] [address] PCP - General 09/30/21 Additional Source Comments The information contained in this document represents components of the legal health record. It is not the complete legal health record.[facility]
--- OUTSIDE RECORDS SUMMARY | 2025-07-10 07:09 | XMS_ITS | Patient Health Record ---
Author Organization [facility] Address [address] [place] [address] Care Team Providers Care Investment Underwriter Name Role Phone Jose E Dougherty Primary Care Provider Unavailab Donald Thompson Unavailable [phone] Allergies No Known Allergies Reason For Referral No Information Medications Medication SIG (Take, Route, Fr equency, Duration) Notes Start Date End Date Status Pioglitazone HCl 15 MG TAKE 1 TABLET BY MOUTH DAILY Diagnosis Unavailable Oral; Duration: 90 Active Immunizations Vaccine Route Administration Date Status Comme nts Influenza Unknown 04/08/2022 Refused Problems Problem Type SNOMED Code ICD Code Onset Dates Problem Status W/U Status Risk Notes Problem Screening for malignant neoplasm of colon (240079616) Encounter for screening for malignant neoplasm of colon (Z12.11) Active confirmed Problem Screening for malignant neoplasm of rectum (027301788) Encounter for screening for malignant neoplasm of rectum (Z12.12) Active confirmed Problem Preprocedural examination (707201930317659) Preprocedural examination (Z01.818) Active confirmed Problem Family History of Cancer of Colon (Situation) (873658150) Family history of colon cancer (Z80.0) Active confirmed Problem Diverticulosis of colon (933246190) Diverticulosis of colon (K57.30) Active confirmed Plan Of Treatment Future Test Test Name Order Date UPPER GI ENDOSCOPY 12/28/2011 COLONOSCOPY 12/28/2011 COLONOSCOPY 12/10/2016 COLONOSCOPY 04/08/2022 Insurance Providers Payer Name Payer Address Payer Phone Subscriber Number Group Number Insured Name Patient Relationship to Insured Coverage Start Date Coverage End Date [facility] [address] [place] [phone] [id number] CARLOS PETERSON Self - patient is the insured Medical (General) History Medical History History ICD Code Denies MD,DM,CVA,Lung disease,renal dise ase Hyperlipidemia Colonoscopy 01/2012--hyperplastic polyp EGD 01/2012--negative for hiatal hernia, esophagitis, and Decker's esophagus NIDDM Colonoscopy 02/2017 with a hyperplastic p olyp removed Surgical History Surgery Date(Month/Year) Cyst on neck removed Umbilical hernia
[2025-07-10 07:14] VITALS: BP 124/68; PULSE 91; TEMP 36.7; O2SAT 97; BMI 47.6
--- NOTE | 2025-07-10 07:14 | MHC.OFFWIV ---
Intake Vital Signs 07/10/25 07:14 Height 5 ft 8.5 in Weight 318 lb BMI 47.6 BP 124/68 Blood Pressure Location Lt brachial Position Sitting Pulse 91 Pulse Source Pulse Oximeter Temp 98.1 F Temp Source Oral Pulse Oximetry (%) 97 Oxygen Delivery Method Room Air Intake Visit Reasons: ep abdomen issues diarrhea cramping when eating Intake Note: Patient presents with c/o severe abdominal pain, diarrhea & cramping when eating x1 1/2 months Patient Tobacco Use Status: Never used Tobacco Allergies [facility] Adverse Reaction (Intermediate, Verified 07/10/25 07:17) Abdominal Pain metformin Adverse Reaction (Intermediate, Verified 07/10/25 07:17) Abdominal Pain Do you need a note to return to daycare/school/sports/work: No HPI HPI Comments History of Present Illness Details History of Present Illness - The patient is a 65-year-old male presenting with severe abdominal pain and chronic diarrhea. - The abdominal pain started approximately a week after a visit to his PCP, Sanjeev Dougherty, on May 14 and has been persistent throughout the past 2 months. - The pain is described as severe and diffuse, occurring after meals, with episodes of sweating and urgency to use the bathroom. He states it doesn't seem to matter what he eats, food high in fats or not, it's always the same result. - The patient reports chronic diarrhea for years, but notes an increase in frequency and severity this month, with stools sometimes appearing black but without blood. - There is no associated fever, nausea, or vomiting, and the patient maintains a normal appetite. - The patient has a history of diverticulosis, identified during a colonoscopy performed in 2021. - A hernia was previously repaired but may have recurred, as indicated by the patient's description of a similar sensation in the same area. Review of Systems - Gastrointestinal: Reports severe abdominal pain and chronic diarrhea. Denies nausea, vomiting, or anorexia. - General: Denies fever. All systems reviewed and are unremarkable except as noted in HPI Physical Exam General: Cooperative, healthy appearing, comfortable, no acute distress and well developed Orientation: Patient oriented x3 Limitations: No limitations Head: Normal to inspection Ears: Hearing grossly normal bilaterally Nose: Normal External nose present Face and sinus: Normal facial exam Eyes: Appearance normal, both eyes and all related structures Neck: Normal visual inspection and Yes full ROM Respiratory: Normal respiratory effort and able to speak in complete sentences. GI: obese, negative cunningham's, slightly positive mcburney's, soft, generalized TTP throughout Skin: No rashes or lesions noted Neuro: Patient oriented x3 Extremities: Normal to inspection [facility] Medical History Elevated cholesterol Diabetes HTN (hypertension) Thrombosed hemorrhoids Perianal abscess Arthritis of carpometacarpal (CMC) joint of right thumb Surgical History Hx of excision of mass History of esophagogastroduodenoscopy (EGD) H/O colonoscopy Hx of umbilical hernia repair Family History Father Colon cancer Prostate cancer Mother Diabetes CVD (cardiovascular disease) Heart attack, Onset Age: 56 Social History Housing: House Alcohol intake: current Alcohol intake frequency: holidays/special occasions only Alcohol type: beer Patient Tobacco Use Status: Never used Tobacco Tobacco use type: Cigarette e-Cigarette/Vaping Use: Never Used Second Hand Smoke Exposure: No service: No Current occupational status: retired 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 Chronic Diarrhea - VSS, pt well appearing and PE remarkable for slightly positive mcburney's and generalized TTP of obese abdomen. - Plan to conduct a stool test using a GI panel to rule out infectious causes. - Messaged PCP for CT scan abd/pelvis with IV contrast to further investigate abdominal pain and diarrhea if infectious causes are ruled out. DDX includes IBS, appendicitis, colitis, divertiulitis (has a hx of diverticulosis), malignancy vs other. Orders: Orders GI Panel Today K52.9 - Noninfective gastroenteritis and colitis, unspecified Coding Level of Care Code Est Pt Level 4 (80615) Diagnoses Chronic diarrhea K52.9
== END 2025-07-10 07:42 | disposition home or self-care (01) ==
PROVIDERS: PCP Physician Assistant; Visit Provider Physician Assistant
DX: K52.9 Noninfective gastroenteritis and colitis, unspecified (principal)

== ENCOUNTER 2025-07-10 07:07 | Outpatient (REF) | payer BC, SELFPAY | END 2025-07-10 07:08 | disposition home or self-care (01) | LOC: HO.LAB 07:07 | PROVIDERS: PCP Physician Assistant | DX: Z13.89 Encounter for screening for other disorder (principal) ==

== ENCOUNTER 2025-07-10 08:35 | Outpatient (REF) | payer BC, SELFPAY ==
[2025-07-10 12:44] LABS: E. coli EAEC Not Detected (Not Detect.); E. coli EPEC Not Detected (Not Detect.); E. coli ETEC Not Detected (Not Detect.); E. coli STEC Not Detected (Not Detect.); Shigella sp./EIEC Not Detected (Not Detect.)
== END 2025-07-10 08:36 | disposition home or self-care (01) ==
LOC: HO.HMGCLNP 08:35
PROVIDERS: PCP Physician Assistant; Visit Provider Physician Assistant
DX: K52.9 Noninfective gastroenteritis and colitis, unspecified (principal)
CPT/HCPCS: 87507

== ENCOUNTER 2025-08-01 14:06 | Outpatient (REF) | payer BC, SELFPAY ==
--- NOTE | ~2025-08-01 | CT_ITS ---
EXAMINATION: CT ABDOMEN AND PELVIS WITH CONTRAST CLINICAL INFORMATION: 65-year-old male, 3 month history of loose stools and diarrhea. Evaluate for inflammatory bowel disease or colitis/diverticulitis COMPARISON: 12/07/2017 CT abdomen. 03/09/2016 CT abdomen and pelvis. TECHNIQUE: Multidetector volumetric images were obtained from the superior aspect of the liver through the pubic symphysis following administration 85 mL of Omnipaque 350 intravenous contrast. Sagittal and coronal reformatted images were obtained on the technologist's workstation. Oral contrast: No This CT examination was performed using dose optimization techniques as appropriate, variously including the following: *Automated exposure control *Adjustment of mA and/or kV according to patient size (this includes techniques or standardized protocols for targeted exams where dose is matched to indication/reason for exam; i.e. extremities or head) *Use of iterative reconstruction technique FINDINGS: LUNG BASES: The lung bases are clear. There is a small type I hiatus hernia. The heart size is normal. There is no effusion. LIVER, GALLBLADDER, AND BILIARY TREE: There is diffuse mild fatty infiltration of the liver. The liver is otherwise normal in attenuation without suspicious focal lesion. There is a tiny cyst in segment 4A. The gallbladder is unremarkable with no evidence of radiopaque gallstones, gallbladder wall thickening, or obvious pericholecystic inflammatory changes. PANCREAS: Mild fatty infiltration present. No inflammation or ductal dilatation. SPLEEN: Unremarkable. ADRENAL GLANDS: Unremarkable. KIDNEYS AND URETERS: The kidneys are normal in size, shape, and attenuation. No hydronephrosis, hydroureter, or calculi seen. No perinephric stranding. BLADDER: Poorly distended. Small diverticulum abutting the left ureteropelvic junction again noted. Otherwise normal. GASTROINTESTINAL TRACT: There is mild diffuse wall thickening of the colon and rectum without significant pericolonic inflammation or hyperemia. The findings are suspicious for mild pancolitis. There is mild sigmoid diverticulosis. There is no evidence of acute diverticulitis. The small bowel is normal in caliber and course. No evidence of inflammation . Small type I hiatus hernia. Stomach is decompressed. Duodenum appears normal. No CT evidence of appendicitis. PERITONEUM: No free air or ascites. ABDOMINAL WALL: No significant hernia is appreciated. LYMPH NODES: No pathologic lymphadenopathy is present. VASCULAR: Moderate atheromatous calcification of the aorta and iliac arteries without evidence of aneurysm. PELVIC VISCERA: Moderate prostate enlargement, with prostate diameter of 5.6 cm. OSSEOUS STRUCTURES: There is no suspicious lytic or blastic bone lesion evident. There are mild degenerative changes throughout the spine. There are arthritic changes in both SI joints, possible inflammatory appearance. There are mild degenerative changes in both hip joints. CT/CT abdomen pelvis w IV con IMPRESSION: 1. There is mild wall thickening of the entire colon and rectum, findings consistent with a mild vega colitis. This could be infectious or inflammatory. 2. There is diffuse fatty infiltration of the liver. 3. There is a small type I hiatus hernia. 4. There are additional ancillary findings as discussed in the body of the report. Electronically signed by: Balaji Van MD 08/01/2025 03:42 PM MISHEL FRIEDMAN
[2025-08-01] MEDS: iohexoL 350 MG/ML 100 ML INFUS..BTL IV (15:25)
[2025-08-01 16:03] LABS: Creatinine POC 1.0 mg/dL (0.5-1.4); GFR POC > 60
--- OUTSIDE RECORDS SUMMARY | 2025-08-01 19:31 | XMS_ITS | Patient Health Record ---
Author Organization [facility] Address [address] [place] [address] Care Team Providers Care Bankruptcy Attorney Name Role Phone Jose E Dougherty Primary Care Provider Unavailab Donald Thompson Unavailable [phone] Allergies No Known Allergies Reason For Referral No Information Medications Medication SIG (Take, Route, Frequency, Duration) Notes Start Date End Date Status Pioglitazone HCl 15 MG Tablet TAKE 1 TABLET BY MOUTH DAILY Diagnosis Unavailable Oral; Duration: 90 Active Immunizations Vaccine Route Administration Date Status Comme nts Influenza Unknown 04/08/2022 Refused Social History Social History Additional Details Category Social Info Options Details Miscellaneous: Marital status: 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 Section Notes: Nonsmoker; occasional alcoho l Nonsmoker; occasional alcoho l Nonsmoker; occasional alcoho l Problems Problem Type SNOMED Code ICD Code Onset Dates Problem Status W/U Status Risk Notes Problem Screening for malignant neoplasm of colon (540395015) Encounter for screening for malignant neoplasm of colon (Z12.11) Active confirmed Problem Screening for malignant neoplasm of rectum (960158391) Encounter for screening for malignant neoplasm of rectum (Z12.12) Active confirmed Problem Preprocedural examination (876178521186534) Preprocedural examination (Z01.818) Active confirmed Problem Family History of Cancer of Colon (Situation) (860588918) Family history of colon cancer (Z80.0) Active confirmed Problem Diverticulosis of colon (343826115) Diverticulosis of colon (K57.30) Active confirmed Plan Of Treatment Future Test Test Name Order Date UPPER GI ENDOSCOPY 12/28/2011 COLONOSCOPY 12/28/2011 COLONOSCOPY 12/10/2016 COLONOSCOPY 04/08/2022 Insurance Providers Payer Name Payer Address Payer Phone Subscriber Number Group Number Insured Name Patient Relationship to Insured Coverage Start Date Coverage End Date [facility] [address] [place] [phone] [id number] CARLOS PETERSON Self - patient is the insured Medical (General) History Medical History History ICD Code Denies PA,DM,CVA,Lung disease,renal dise ase Hyperlipidemia Colonoscopy 01/2012--hyperplastic polyp EGD 01/2012--negative for hiatal hernia, esophagitis, and Decker's esophagus NIDDM Colonoscopy 02/2017 with a hyperplastic p olyp removed Surgical History Surgery Date(Month/Year) Cyst on neck removed Umbilical hernia
--- OUTSIDE RECORDS SUMMARY | 2025-08-01 19:31 | XMS_ITS | Clinical Summary ---
Author Organization [facility] Address [address] [place] [id number] Phone Care Team Providers Care Cutter Hot Knife Name Role Phone Jose E Dougherty Primary [...] Insurance O HMO [place] [address] [place] [address] [place] [address] HMO HMO HMO Care Teams Cutter Hot Knife Relationship Specialty Start Date End Date Jose E Dougherty PA [address] [place] [address] PCP - General 09/30/21 Additional Source Comments The information contained in this document represents components of the legal health record. It is not the complete legal health record.[facility]
== END 2025-08-01 14:07 | disposition home or self-care (01) ==
LOC: HO.CT 14:06
PROVIDERS: PCP Physician Assistant; Visit Provider Physician Assistant
DX: K52.9 Noninfective gastroenteritis and colitis, unspecified (principal)
CPT/HCPCS: 74177; 82565; Q9967

== ENCOUNTER → 2025-08-01 14:08 | Outpatient (BNV) | payer BC, SELFPAY | PROVIDERS: PCP Physician Assistant; Visit Provider Radiology Diagnostic Radiology | DX: K76.9 Liver disease, unspecified (principal); K44.9 Diaphragmatic hernia without obstruction or gangrene | CPT/HCPCS: 74177 ==

== ENCOUNTER 2025-08-26 09:04 | Day surgery (SDC) | payer BC, SELFPAY ==
--- NOTE | 2025-08-23 08:02 | HO.ANESPROP2 ---
Documented by User: Jana Paz NP 08/23/25 08:03 HPI - Anesthesia Eval Consult details Narrative: 65yo M for Colonoscopy BMI 47.6 Anesthesia Pre-Procedure Meds Is the patient on any of the following meds?: GLP1/DPP4 PMFSH Active Problems Active Problems: All Active Problems Colitis (Acute) Chronic diarrhea (Acute) Class 3 obesity (Acute) Cervical radicular pain (Acute) Postprandial abdominal pain in right upper quadrant (Acute) Cellulitis (Acute) Unknown varicella vaccination status (Acute) Essential tremor (Acute) HLD (hyperlipidemia) (Acute) Screening for diabetes mellitus (DM) (Acute) Screening for hypercholesterolemia (Acute) Screening for hypothyroidism (Acute) Annual physical exam (Acute) DMII (diabetes mellitus, type 2) (Acute) Colon cancer screening (Acute) HTN (hypertension) (Acute) Perianal abscess (Acute) Past Medical History Medical History Elevated cholesterol Diabetes HTN (hypertension) Thrombosed hemorrhoids Perianal abscess Arthritis of carpometacarpal (CMC) joint of right thumb Family History Family History Father Colon cancer Prostate cancer Mother Diabetes CVD (cardiovascular disease) Heart attack, Onset Age: 56 Surgical History Surgical History Hx of excision of mass History of esophagogastroduodenoscopy (EGD) H/O colonoscopy Hx of umbilical hernia repair Social History Social History Housing: House Alcohol intake: current Alcohol intake frequency: holidays/special occasions only Alcohol type: beer Patient Tobacco Use Status: Never used Tobacco Tobacco use type: Cigarette e-Cigarette/Vaping Use: Never Used Second Hand Smoke Exposure: No Use of substances other than those prescribed or required for medical reasons: No Advance Directives: No Advance Directives Information Provided: Yes service: No Current occupational status: retired 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 Cognitive needs: No Hearing needs: No Vision needs: No Meds Allergies Allergy/AdvReac Type Severity Reaction Status Date / Time dulaglutide (From Trulicity) AdvReac Intermediate Abdominal Verified 08/26/25 10:04 Pain metformin AdvReac Intermediate Abdominal Verified 08/26/25 10:04 Pain Exam Pertinent Lab Results Pertinent Lab Results: Laboratory Tests 05/14/25 10:30 WBC 8.4 Hgb 16.0 Hct 48.2 Plt Count 211 Sodium 139 Potassium 4.5 Chloride 103 Carbon Dioxide 26 BUN 14 Creatinine 1.01 Assessment and Plan Assessment Anesthesia Assessment: Chart Reviewed Documented by User: Aimee Hoffman MD 08/26/25 10:37 PMFSH Past Medical History Medical History Elevated cholesterol Diabetes HTN (hypertension) Thrombosed hemorrhoids Perianal abscess Arthritis of carpometacarpal (CMC) joint of right thumb Family History Family History Father Colon cancer Prostate cancer Mother Diabetes CVD (cardiovascular disease) Heart attack, Onset Age: 56 Surgical History Surgical History Hx of excision of mass History of esophagogastroduodenoscopy (EGD) H/O colonoscopy Hx of umbilical hernia repair History of Problems with Anesthesia: No Social History Social History Housing: House Alcohol intake: current Alcohol intake frequency: holidays/special occasions only Alcohol type: beer Patient Tobacco Use Status: Never used Tobacco Tobacco use type: Cigarette e-Cigarette/Vaping Use: Never Used Second Hand Smoke Exposure: No Use of substances other than those prescribed or required for medical reasons: No Advance Directives: No Advance Directives Information Provided: Yes service: No Current occupational status: retired 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 Cognitive needs: No Hearing needs: No Vision needs: No Meds Allergies Allergy/AdvReac Type Severity Reaction Status Date / Time dulaglutide (From Trulicity) AdvReac Intermediate Abdominal Verified 08/26/25 10:04 Pain metformin AdvReac Intermediate Abdominal Verified 08/26/25 10:04 Pain Exam Airway Mallampati Class: III TM Dist: >3cm Neck ROM: Full Loose/Missing/Broken Teeth: No Heart: RRR Lungs: CTA Assessment and Plan Assessment Anesthesia Assessment: Anesthesia Plan Discussed Final Anesthetic Review History of Problems with Anesthesia: No NPO: Yes ASA Class: III Final Preanesthetic Review: Meds/Allgs Chart Reviewed, Consent Obtained/Reviewed and Anes Risks/Benef Reviewed Patient Risk: Intermediate Procedure Risk: Low Anesthetic Plan Anesthetic Plan: MAC: Disposition: Standard PACU
[2025-08-26 09:36] VITALS: BMI 46.3
[2025-08-26 09:53] VITALS: BP 166/79; PULSE 90; RESP 18; TEMP 36.2; O2SAT 98
[2025-08-26 09:58] LABS: Glucose, Whole Blood 153 mg/dL (60-115)
[2025-08-26] MEDS: Lactated Ringers 1,000 ML 100 ML IVCONT (10:05)
[2025-08-26 11:35] VITALS: BP 140/78; PULSE 91; TEMP 36.3; O2SAT 94
[2025-08-26 11:45] VITALS: BP 121/71; PULSE 87; O2SAT 97
--- NOTE | 2025-08-26 11:45 | PM.OP ---
Brief Operative Note Date of Service: 08/26/25 Pre-op diagnosis: Diarrhea Post-op diagnosis: other (Diverticulosis) Procedure: Colonoscopy to the cecum and TI with biopsies Surgeon: Donald Stroud MD Anesthesia: MAC Was an Community Association Manager used for this Procedure?: No Estimated blood loss (mL): 2.0 Pathology: other (A. Ascending colon B. Terminal ileum C. Descending colon) Condition: stable Disposition: PACU
[2025-08-26 12:00] VITALS: BP 139/88; PULSE 82; TEMP 36.3; O2SAT 97
--- NOTE | 2025-08-26 12:45 | OP_ITS ---
DATE OF SERVICE: 08/26/2025 SURGEON: Donald Stroud MD INDICATIONS: The patient presents for evaluation of change in bowel habits with associated diarrhea and abnormal CT scan of the colon. Full consent has been obtained from him for this, including risks of bleeding and perforation. PREOPERATIVE DIAGNOSIS: POSTOPERATIVE DIAGNOSIS: PROCEDURE PERFORMED: Colonoscopy to the cecum and terminal ileum with biopsies. ESTIMATED BLOOD LOSS: COMPLICATIONS: ANESTHESIA: Medication used, monitored anesthesia care. ASSISTANTS: SPECIMENS: PREOPERATIVE DIAGNOSES: Change in bowel habits with associated diarrhea and abnormal CT scan of colon. POSTOPERATIVE DIAGNOSES: Change in bowel habits with associated diarrhea and abnormal CT scan of colon, rule out microscopic colitis, diverticulosis, and internal hemorrhoids. DESCRIPTION OF PROCEDURE: The patient was placed in the left lateral decubitus position. The digital rectal exam revealed no abnormalities. The [employer] video pediatric colonoscope was entered into the rectum and advanced easily to the cecum. Once in the cecum, I did identify normal-appearing cecal pouch with appendiceal orifice and a normal-appearing ileocecal valve. The terminal ileum was cannulated and appeared normal. Biopsies were obtained. The scope was withdrawn back in the colon. The entire cecum and ileocecal valve appeared normal. The scope was slowly withdrawn assessing all mucosal surfaces carefully. Preparation was excellent. I did not visualize any sign of polyps, colitis, nor angiodysplasia. There was a mild amount of sigmoid diverticulosis. Random biopsies were obtained in the ascending and descending colon to rule out microscopic colitis. In the rectum, scope was retroflexed visualizing internal hemorrhoids, but no other pathology. The rectal mucosa appeared normal. The scope was straightened and withdrawn from the patient. He tolerated the procedure well and was returned to the recovery area in stable condition. IMPRESSION: 1. Rule out microscopic colitis. 2. Diverticulosis. 3. Internal hemorrhoids. PLAN: The results of the biopsies will be checked. At this point, there does not appear to be any sign of inflammatory bowel disease. If the colon and terminal ileum biopsies are normal, then I would assume that his change in bowel habits may have been related to his use of the GLP-1 medication that he had been on, specifically that of the Ozempic. He was also on Actos. Therefore we may need to just observe him off his GLP-1 medication to see how he does. I do not think he needs any prednisone or other treatment at this time besides p.r.n. Imodium. He was advised to try to stay on a healthier diet and avoid greasy and fast foods. He will see me for a followup visit as well. He was advised not to use any aspirin nor NSAIDs for 1 week. If his symptoms persist he would need testing for celiac disease, if not already done. This has been discussed with his in detail as well. MD ARMANDO Carrera/GILBERT / [id number] MTDD
== END 2025-08-26 12:36 | disposition home or self-care (01) ==
PROVIDERS: PCP Physician Assistant; Visit Provider Internal Medicine
PROC: 0DJD8ZZ Inspection of Lower Intestinal Tract, Via Natural or Artificial Opening Endoscopic (ICD-10-PCS; CPT 45378; principal; 2025-08-26 10:30)
DX: R93.3 Abnormal findings on diagnostic imaging of other parts of digestive tract (principal); R19.7 Diarrhea, unspecified; Z80.0 Family history of malignant neoplasm of digestive organs; Z86.0101 Personal history of adenomatous and serrated colon polyps; K57.30 Diverticulosis of large intestine without perforation or abscess without bleeding; K64.8 Other hemorrhoids
CPT/HCPCS: 45380; 82947; 88305; J2003; J2704